=== PATIENT | female | born 1985 | race Caucasian/White ===

== ENCOUNTER 2016-06-19 08:44 | Inpatient (IN) | payer OTHER ==
--- NOTE | ~2016-06-19 | CO ---
Unit #: [id number] #: [id number] Patient: RAMSEY HOLGUIN [id number] [address] [address] [id number] I MR#: [id number] NAME: RAMSEY HOLGUIN ROOM: [facility] Age: 31 Sex: F Admission Date: 06/19/2016 : 1985 Attending Physician: Rodney Baltazar M.D. Primary Care Physician: No Primary Care Physician Requesting Physician: Dave Leonard M.D. CONSULTATION REPORT REASON FOR REFERRAL Left pneumothorax. HISTORY OF PRESENT ILLNESS Ms. Ramsey Holguin is a 31-year-old female with history of polysubstance abuse who presented to the emergency room with septic emboli with complaint of malaise, pain and fever and developed respiratory failure and was intubated on 06/24/16. Then, she developed a left pneumothorax this a.m. She had a #[address] Arturo Bonds. Followup chest x-ray shows tiny residual left apical pneumothorax. PAST MEDICAL HISTORY Polysubstance abuse with heroin, GERD, seizure disorder, anxiety disorder, asthma. PAST SURGICAL HISTORY Surgery for endometriosis, ovarian cyst, right hand surgery and oral surgery. MEDICATION ALLERGIES Keflex. MEDICATIONS 1. Methadone 30 mg daily. 2. Gabapentin 300 mg three times a day. 3. Linezolid 600 mg once every 12 hours. 4. Lorazepam 0.5 mg two tablets every eight hours. 5. Oxycodone 15 mg immediate release one every four hours p.r.n. REVIEW OF SYSTEMS Unable to obtain due to patient's intubation. PHYSICAL EXAMINATION GENERAL APPEARANCE: 31-year-old female, , sedated, orally intubated on ventilator. VITAL SIGNS: Temperature 99.7. Heart rate 94. Blood pressure 107/62. Respiratory rate 18 per ventilator. NEUROLOGIC: Unable to assess due to sedation. HEENT: Normocephalic. No facial asymmetry. Orally intubated. NECK: Supple. Trachea midline. No thyromegaly. No palpable cervical, supraclavicular or (1) lymphadenopathy. No subcu emphysema. LUNGS: Bilaterally but decreased in the bases with some rhonchi noted. CARDIOVASCULAR: S1, S2, without rub, without murmur. No S3 or S4. No peripheral edema. Unit #: [id number] #: [id number] Patient: RAMSEY HOLGUIN ABDOMEN: Large, round, soft. Bowel sounds positive, nontender. No pulsatile pulses or hepatosplenomegaly. EXTREMITIES: Warm and dry. No edema. No clubbing. No cyanosis but she does have some ecchymosis on the upper extremities. DIAGNOSTIC STUDIES IMAGING: Chest x-ray following chest tube placement shows small retained apical pneumothorax. IMPRESSION 1. Left pneumothorax status post chest tube placement. 2. Septic emboli. 3. Tricuspid endocarditis. 4. Seizure disorder. 5. Acute respiratory failure. PLAN We will continue the tube dissection and then re-evaluate in the a.m. with chest x-ray. Thank you very much for allowing us to participate in the care of the patient. If you have any questions, please do not hesitate to call. Dictated by... Isabella Cohn A.P.R.N. for Arturo Bonds M.D. JAYNE/dylan TD: 06/25/2016 12:45 JOB #: [id number] CONSULTATION REPORT Page 1 of 1 X Isabella Cohn APRN X CONSULTATION REPORT
--- NOTE | ~2016-06-19 | XA166 ---
[facility] A Service of [facility] & [facility] RADIOLOGY TEXT RESULTS PATIENT: SALOME ECHOLS LOCATION: [address] : [birth year] UNIT #: [id number] AGE: [address]: Jacob Geronimo MD SEX: F ORDER DR: [id number] [facility] [address] [place], [place] [address] [id number] I MR#: [id number] Acc #: [id number] NAME: SALOME ECHOLS : 1985 SEX: F STUDY DATE/TIME: 07/07/2016 13:41 [facility] STUDY DESCRIPTION: XA PICC Line Placement WO Port Attending Physician: Jacob Geronimo M.D. Ordering Physician: Jacob Geronimo M.D. Primary Care Physician: Ashley Primary Care Physician MEDICAL IMAGING REPORT This report is preliminary unless electronic signature is present EXAM PICC line placement under fluoroscopy HISTORY No IV access. PRE-PROCEDURE The procedure was explained to the patient and/or patient regional sales representative including risks, benefits, potential complications and potential for alternative forms of treatment. Informed consent was obtained, and prior to initiating the procedure a formal timeout procedure was performed. PROCEDURE Using full standard sterile barrier technique, including caps, gowns, gloves, masks, as well as sterile skin preparation and standard sterile draping, the right arm was prepped and draped in the usual fashion, and real-time sterile ultrasound guidance was used to localize a right arm basilic vein and to confirm vessel patency. A hard copy ultrasound image was recorded. After local anesthesia with 1% Xylocaine, the vein was punctured using real-time sterile ultrasound guidance, and an 0.018 guidewire was advanced into the superior vena cava, using fluoroscopic guidance. A 5 Stateless dual-lumen PICC was then measured and deployed with the tip positioned in the superior vena cava. The position of the line was documented with a radiographic image. The line was secured in place with an adhesive dressing and an antibiotic patch was applied. Total fluoro time was 0.1 minutes. Exposure 1 mGy trimmed length of 37 cm. Tip of the catheter is in the SVC. IMPRESSION Successful placement of a 5 Stateless dual lumen PowerPICC via the right arm under ultrasound and fluoroscopic guidance. The tip of the PICC is in STS. [facility] A Service of [facility] & [facility] RADIOLOGY TEXT RESULTS PATIENT: SALOME ECHOLS [facility] [birth year] UNIT #: [id number] AGE: [address]: Jacob Geronimo MD SEX: F ORDER DR: good position in the superior vena cava. Dictated by... Colton Salguero M.D. THIS IS AN ELECTRONICALLY VERIFIED REPORT Colton Salguero M.D. at 07/08/2016 9:31 AM JOVANNI/zana TD: 07/07/2016 19:56 JOB #: [id number] MEDICAL IMAGING REPORT Page 1 of 1 COPY
--- NOTE | ~2016-06-19 | TOC ---
Unit #: [id number] #: [id number] Patient: SALOME ECHOLS [id number] [facility] [address] [place], [place] [address] [id number] I MR#: [id number] NAME: SALOME ECHOLS RO[facility] Age: 31 Sex: F Admission Date: 06/19/2016 : 1985 Attending Physician: Rodney Baltazar M.D. Primary Care Physician: No Primary Care Physician TRANSFER OF CARE SUMMARY PRINCIPAL DIAGNOSES AT THE TIME OF DICTATION 1. Tricuspid valve endocarditis. 2. Acute hypoxic respiratory failure. 3. Methicillin-resistant Staphylococcus aureus sepsis. 4. Septic pulmonary emboli. 5. Methicillin-resistant Staphylococcus aureus pneumonia. 6. Pneumothorax. 7. Intravenous drug abuse. 8. Severe sepsis. 9. Back pain. 10. Thrombocytopenia. 11. Hypokalemia. 12. Severe protein calorie malnutrition. HOSPITAL COURSE Patient is a 31-year-old female who presented to [facility] emergency department secondary to body aches and coughing up blood. Apparently she has been feeling ill for about five days. Twenty-four hours prior to presentation she began to thrown up and noticed blood in her vomitus. Workup revealed sepsis, pneumonia and possible endocarditis. Ultimately blood cultures returned with growing MRSA. Two-D echo was performed and showed tricuspid valve vegetation. The patient was started on IV vancomycin and gentamicin and the gentamicin was stopped once the MRSA became evident. The patient began to complain of back pain on hospital day two. An MRI was ordered to rule out discitis. However, the patient was unable to tolerate the MRI secondary to pain. On 06/22 the patient's blood cultures that had previously appeared positive began to return growing MRSA. ID consult was obtained. The patient was changed to Zyvox. On 06/24 the patient's respiratory status worsened and she was transferred to the ICU and intubated. RNENY at that time revealed severe flail of the posterior leaflet of the tricuspid valve. Since that time the patient has remained intubated and antibiotics have continued. Most recent blood cultures are negative. Conversation has been had with CT surgery downtown regarding possible surgery. However, it is felt that the patient needs to be more hemodynamically stable prior to Unit #: [id number] #: [id number] Patient: SALOME ECHOLS transfer. Dictated by... Jaspal Navarro/saad TD: 06/28/2016 20:15 JOB #: [id number] TRANSFER OF CARE SUMMARY Page 1 of 1 X Rodney Baltazar MD X TRANSFER OF CARE SUMMARY
--- NOTE | ~2016-06-19 | FU ---
[facility] Nutrition Therapy DATE: 06/29/16 Patient: SALOME ECHOLS Physician: SESAR Address: [address] Room/Bed: [address], Zip: [place] [address] Admit Date: 06/19/16 Date of : [birth year] Height: 5 3 Weight: 160 73 NUTRITION MONITORING/FOLLOW-UP: Reason: PT SEEN FOR ENTERAL NUTRITION SUPPORT/ENTERAL NUTRITION SUPPORT DX: BODY ACHES, COUGHING UP BLOOD, PNA, ENDOCARDITIS Anthropometrics: 5'3", WT: 160# (73 KG), BMI: 28.3 -WEIGHTS HAVE RANGED 135-160# SINCE ADMIT. ADMIT WT: 135# (FLUID RETENTION) Labs: CREAT: 0.5, CA+:7.6, ALB: 1.6 Meds: KCL, D5%, FENTANYL, ZOFRAN, PROPOFOL (CURRENTLY OFF) I&O's: 2412/4110 Skin: BLE TRACE EDEMA; BUE/HANDS 1+ EDEMA Estimated Nutrition Needs: [id number] KCAL 74-92 G PRO Assessment: CHART REVIEWED AND EVENTS NOTED. PT SEEN FOR ENTERAL NUTRITION SUPPORT FOLLOW-UP. PT CONTINUES TO BE INTUBATED AND SEDATED RECEIVING ALTERNATIVE NUTRITION SUPPORT OF JEVITY 1.5 @ 50 ML/HR + SUGAR-FREE PROSTAT ONCE DAILY. PER RN AND CHART, PT TOLERATING ENTERAL NUTRITION, NO ISSUES NOTED. PER PUMP HISTORY, PT RECEIVING ~90% ESTIMATED NEEDS PAST 24 HOURS. NO FAMILY IN ROOM AT THIS TIME. RD TO CONTINUE TO FOLLOW. -PROVIDES 1900 KCAL, 92 G PRO, 912 ML FREE H20 Dx: INADEQUATE PROTEIN-ENERGY INTAKE R/T CURRENT CLINICAL CONDITION AEB NPO STATUS, PT INTUBATED AND SEDATED, CONSULT RE: EN. -ACTIVE, RESOLVED INADEQUATE PROTEIN-ENERGY INTAKE R/T CURRENT CLINICAL CONDITION AEB PT RECEIVING ALTERNATIVE NUTRITION SUPPORT, PT INTUBATED AND SEDATED. Intervention: 1. ENTERAL NUTRITION SUPPORT Monitoring, Evaluation and Goals: GOALS MET 1. ENTERAL NUTRITION; TOLERATE ~80-100% ESTIMATED NUTRIENT NEEDS 2. PO INTAKE; ADVANCE DIET TOLERATED W/NO C/O N/V/D (PO>50%) 3. LABS; WNL 4. GI; PROMOTE REGULAR GI FUNCTION MONITOR: -TF RATE/RESIDUALS [facility] Nutrition Therapy DATE: 06/29/16 Patient: SALOME ECHOLS Physician: SESAR Address: [address] [facility] Room/Bed: [address], Zip: [place] [address] Admit Date: 06/19/16 Date of : [birth year] Height: 5 3 Weight: 160 73 -WEIGHTS -EXTUBATION? Recommendations: 1. CONTINUE CURRENT ENTERAL NUTRITION SUPPORT OF JEVITY 1.5 @ 50 ML/HR + SUGAR-FREE PROSTAT ONCE DAILY -ADEQUATE FOR PT'S CURRENT ESTIMATED NEEDS CONTINUE FREE H20 FLUSHES PER MD 2. ONCE PT EXTUBATED, ADVANCE DIET PER E MERCHANT + REGULAR RD WILL F/U PER PROTOCOL PT IS MOD/SEVERELY COMPROMISED Respectfully, MIGNON SILVA MS, RD, LD [facility] Nutrition[facility] cc: client file
--- NOTE | ~2016-06-19 | CR72 ---
[facility] A Service of [facility] & [facility] RADIOLOGY TEXT RESULTS PATIENT: SALOME ECHOLS LOCATION: [address] : [birth year] UNIT #: [id number] AGE: [address]: DREA SHAIKH MD SEX: F ORDER DR: [id number] [facility] [address] [place], [place] [address] [id number] I MR#: [id number] Acc #: [id number] NAME: SALOME ECHOLS : 1985 SEX: F STUDY DATE/TIME: 07/04/2016 13:26 UNIT: [facility] ROOM: [facility] STUDY DESCRIPTION: CR Chest Single View Portable Attending Physician: Drea Shaikh M.D. Ordering Physician: Mj Cooper M.D. Primary Care Physician: Primary Care Physician No MEDICAL IMAGING REPORT This report is preliminary unless electronic signature is present EXAM Portable chest 07/04/2016 HISTORY Respiratory failure and shortness of air since 05/22/2016. COMPARISON Chest 07/04/2016. FINDINGS 2 frontal views of the chest demonstrate tubes and lines in stable position. No pneumothorax. No change in layering right pleural effusion and bilateral interstitial opacities. Heart size and mediastinum are stable. IMPRESSION 1. Tubes and lines are stable. No pneumothorax. 2. No change in layering right pleural effusion and bilateral interstitial opacities. Dictated by... Greyson Oconnell M.D. THIS IS AN ELECTRONICALLY VERIFIED REPORT Greyson Oconnell M.D. at 07/05/2016 10:55 AM WILBERT/jerilyn TD: 07/05/2016 09:09 JOB #: [id number] MEDICAL IMAGING REPORT Page 1 of 1 COPY
--- NOTE | ~2016-06-19 | CR72 ---
[facility] A Service of [facility] & [facility] RADIOLOGY TEXT RESULTS PATIENT: SALOME ECHOLS LOCATION: [address]12 : [birth year] UNIT #: [id number] AGE: [address]: Jacob Geronimo MD SEX: F ORDER DR: [id number] [facility] [address] [place], [place] [address] [id number] I MR#: [id number] Acc #: [id number] NAME: SALOME ECHOLS : 1985 SEX: F STUDY DATE/TIME: 07/05/2016 3:38 UNIT: [facility] ROOM: [facility] STUDY DESCRIPTION: CR Chest Single View Portable Attending Physician: Grazyna Shaikh M.D. Ordering Physician: Daev Leonard M.D. Primary Care Physician: No Primary Care Physician MEDICAL IMAGING REPORT This report is preliminary unless electronic signature is present EXAM Portable chest, 07/05/16 HISTORY Abdominal distension, respiratory failure, septic emboli, followup endotracheal tube, symptoms for 16 days FINDINGS This portable view of the chest shows an endotracheal tube and Dobbhoff tube and central venous catheter are in good position. There is increased density in the right hemithorax suggesting small moderate effusion. There has been no change from yesterday's study. Dictated by... Dayron Winters M.D. THIS IS AN ELECTRONICALLY VERIFIED REPORT Dayron Winters M.D. at 07/06/2016 1:25 PM KERRIE/dyan TD: 07/05/2016 19:13 JOB #: [id number] MEDICAL IMAGING REPORT Page 1 of 1 COPY
--- NOTE | ~2016-06-19 | CR7 ---
[facility] A Service of [facility] & [facility] RADIOLOGY TEXT RESULTS PATIENT: RAMSEY HOLGUIN LOCATION: [place] [address]-12 : 83 UNIT #: [id number] AGE: [address]: Rodney Baltazar MD SEX: F ORDER DR: [id number] [facility] [address] [place], [place] [address] [id number] I MR#: [id number] Acc #: [id number] NAME: RAMSEY HOLGUIN : 1985 SEX: F STUDY DATE/TIME: 06/24/2016 16:12 UNIT: [facility] ROOM: [facility] STUDY DESCRIPTION: CR Abdomen Single AP View Attending Physician: Rodney Baltazar M.D. Ordering Physician: Rodney Baltazar M.D. Primary Care Physician: No Primary Care Physician MEDICAL IMAGING REPORT This report is preliminary unless electronic signature is present EXAM AP abdomen. HISTORY Dobbhoff tube placement. COMPARISON No comparisons. FINDINGS Dobbhoff tube is projecting over the region of the stomach. The bowel gas pattern is nonobstructed. There are bilateral pulmonary infiltrates and a right pleural effusion. IMPRESSION Dobbhoff tube projecting over the region of the stomach. Dictated by... Tristin Sorenson M.D. THIS IS AN ELECTRONICALLY VERIFIED REPORT Tristin Sorenson M.D. at 06/25/2016 9:00 AM JORGE/juany TD: 06/24/2016 19:25 JOB #: [id number] MEDICAL IMAGING REPORT Page 1 of 1 COPY
--- NOTE | ~2016-06-19 | CT16 ---
[facility] A Service of [facility] RADIOLOGY TEXT RESULTS PATIENT: RAMSEY HOLGUIN LOCATION: [facility] [address]-12 : 83 UNIT #: [id number] AGE: [address]: Ilda Mariee MD SEX: F ORDER DR: [id number] [facility] [address] [place], [place] [address] [id number] I MR#: [id number] Acc #: [id number] NAME: RAMSEY HOLGUIN : 1985 SEX: F STUDY DATE/TIME: 06/19/2016 14:06 UNIT: [facility] ROOM: [facility] STUDY DESCRIPTION: CT Angio Chest for PE Attending Physician: Ilda Mariee M.D. Ordering Physician: Ilda Mariee M.D. Primary Care Physician: Primary Care Physician No MEDICAL IMAGING REPORT This report is preliminary unless electronic signature is present EXAM Chest CTA, 06/19 INDICATION Body aches with fever, cough and shortness of air for 5 days, worsening over that time. TECHNIQUE Axial images were obtained through the chest following IV contrast administration. 3-D reformats were obtained. This CT exam was performed with one or more of the following radiation dose reduction techniques: automatic exposure control, adjustment of mA and/or kV according to patient size, and iterative reconstruction. COMPARISON No comparison chest CT. FINDINGS The exam is degraded by excessive respiratory motion. No pulmonary embolism is seen, and there is no aortic dissection. There are trace pleural effusions. No pericardial fluid. There is no adenopathy. Multifocal areas of alveolar consolidation are seen throughout both lungs. At least 1 of these in the right upper lobe is partially cavitary. These are all probably the result of septic emboli in a patient with history of IV drug abuse. There is some septal thickening in the lungs suggesting a mild degree of edema as well. IMPRESSION 1. Motion degraded exam, but no pulmonary embolism or aortic dissection is seen. 2. Multifocal patchy alveolar infiltrates throughout the lungs are [facility] A Service of [facility] RADIOLOGY TEXT RESULTS PATIENT: RAMSEY HOLGUIN LOCATION: [facility] [address]78 : 83 UNIT #: [id number] AGE: [address]: Ilda Mariee MD SEX: F ORDER DR: present. At least 1 of these in the right upper lobe is partially cavitary. These are probably secondary to septic emboli. 3. Trace bilateral pleural effusions. Dictated by... Kenny Guevara Jr., M.D. THIS IS AN ELECTRONICALLY VERIFIED REPORT Kenny Guevara Jr., M.D. at 06/19/2016 3:50 PM JARROD/prem TD: 06/19/2016 15:40 JOB #: [id number] MEDICAL IMAGING REPORT Page 1 of 1 COPY
--- NOTE | ~2016-06-19 | CR72 ---
[facility] A Service of [facility] RADIOLOGY TEXT RESULTS PATIENT: RAMSEY HOLGUIN LOCATION: [facility] [address]-12 : 83 UNIT #: [id number] AGE: [address]: Ilda Mariee MD SEX: F ORDER DR: [id number] [facility] [address] [place], [place] [address] [id number] E MR#: [id number] Acc #: [id number] NAME: RAMSEY HOLGUIN : 1985 SEX: F STUDY DATE/TIME: 06/19/2016 8:38 UNIT: [facility] ROOM: STUDY DESCRIPTION: CR Chest Single View Portable Attending Physician: Tracy Mercado M.D. Ordering Physician: Tracy Mercado M.D. Primary Care Physician: Primary Care Physician No MEDICAL IMAGING REPORT This report is preliminary unless electronic signature is present EXAM Portable chest INDICATION 31-year-old female with fever, body aches and shortness of breath for 5 days. COMPARISON 05/06/2014. FINDINGS Bilateral interstitial and alveolar infiltrates greatest in the left base. Findings most suspicious for pneumonia. Heart size normal. IMPRESSION Bilateral interstitial and alveolar infiltrates most compatible with pneumonia. Findings are worse in the left lung base. Dictated by... Tristin Sorenson M.D. THIS IS AN ELECTRONICALLY VERIFIED REPORT Tristin Sorenson M.D. at 06/19/2016 5:03 PM JORGE/jerilyn TD: 06/19/2016 10:40 JOB #: [id number] MEDICAL IMAGING REPORT Page 1 of 1 COPY
--- NOTE | ~2016-06-19 | US139 ---
[facility] A Service of [facility] RADIOLOGY TEXT RESULTS PATIENT: SALOME ECHOLS [facility]ATION: [facility] [birth year] UNIT #: [id number] AGE: [address]: DREA RUBIO MD SEX: F ORDER DR: [id number] [facility] [address] [place], [place] [address] [id number] I MR#: [id number] Acc #: [id number] NAME: SALOME ECHOLS : 1985 SEX: F STUDY DATE/TIME: 06/30/2016 17:49 UNIT: [facility] ROOM: [facility] STUDY DESCRIPTION: US UE Veins Complete Alexis Stdy Attending Physician: Drea Rubio M.D. Ordering Physician: Ed Doctor [id number] [facility] Primary Care Physician: Primary Care Physician No MEDICAL IMAGING REPORT This report is preliminary unless electronic signature is present EXAM Bilateral upper extremity duplex Doppler venous ultrasound COMPARISON None INDICATIONS 31-year-old female with septic pulmonary emboli and dyspnea for 2 days. MRSA infection. FINDINGS Right internal jugular vein is not imaged. Right subclavian vein is fully compressible with normal internal color-flow waveform. Right axillary, cephalic and basilic veins as well as the right brachial veins are fully compressible with internal color flow. Left internal jugular and axillary veins are fully compressible with normal internal color-flow and waveform. Left subclavian vein is fully compressible with normal internal color-flow and waveform. The left cephalic, basilic and brachial veins are fully compressible with color flow noted in both brachial veins. IMPRESSION Please note that there are no images saved of the right internal jugular vein. Therefore this vessel cannot be evaluated for the presence of deep venous thrombosis. Clinical correlation recommended. Exam is otherwise negative for DVT or SVT in either upper extremity. Dictated by... Maico Higuera M.D. THIS IS AN ELECTRONICALLY VERIFIED REPORT [facility] A Service of [facility] RADIOLOGY TEXT RESULTS PATIENT: RED,SALOME LOCATION: [address]12 : [birth year] UNIT #: [id number] AGE: [address]: DREA RUBIO MD SEX: F ORDER DR: Maico Higuera M.D. at 07/01/2016 11:55 AM Channing TD: 07/01/2016 06:36 JOB #: [id number] MEDICAL IMAGING REPORT Page 1 of 1 COPY
--- NOTE | ~2016-06-19 | CR72 ---
[facility] A Service of [facility] & [facility] RADIOLOGY TEXT RESULTS PATIENT: SALOME ECHOLS LOCATION: [address] : [birth year] UNIT #: [id number] AGE: [address]: Jacob Geronimo MD SEX: F ORDER DR: [id number] [facility] [address] [place], [place] [address] [id number] I MR#: [id number] Acc #: [id number] NAME: SALOME ECHOLS : 1985 SEX: F STUDY DATE/TIME: 07/05/2016 17:25 UNIT: [facility] ROOM: [facility] STUDY DESCRIPTION: CR Chest Single View Portable Attending Physician: Grazyna Shaikh M.D. Ordering Physician: Dave Leonard M.D. Primary Care Physician: Primary Care Physician No MEDICAL IMAGING REPORT This report is preliminary unless electronic signature is present EXAM Single view of the chest, 07/05/2016 at 1725 hours. COMPARISON Single view chest dated 07/05/2016 at 0338 hours. HISTORY Right-sided chest tube placement now. FINDINGS Frontal view of the chest was obtained. Interval new placement of a right-sided chest tube with interval mild decrease in the right-sided pleural effusion. There is residual still some pleural effusion noted. New subcutaneous emphysema is noted in the right lateral chest wall, likely post procedural. Scattered alveolar And interstitial opacities are noted in the lungs bilaterally, worse on the right when compared to the left. Heart is of normal size. Tubes and lines are relatively stable. Tip of the endotracheal tube appears to be slightly more lower and it is about 1.7 cm from the [place]. It could also be related to neck position. IMPRESSION 1. Interval new right-sided chest tube. 2. Postprocedural subcutaneous emphysema and decrease in the right-sided pleural effusion is seen. 3. Cardiopulmonary status of the other tubes and lines are stable. Dictated by... Darcy Simon M.D. THIS IS AN ELECTRONICALLY VERIFIED REPORT Darcy Simon M.D. at 07/06/2016 1:49 PM [facility] A Service of [facility] & [facility] RADIOLOGY TEXT RESULTS PATIENT: SALOME ECHOLS LOCATION: [facility] CICCU2-12 : [birth year] UNIT #: [id number] AGE: [address]: Jacob Geronimo MD SEX: F ORDER DR: CINDA/kavin TD: 07/06/2016 05:53 JOB #: [id number] MEDICAL IMAGING REPORT Page 1 of 1 COPY
--- NOTE | ~2016-06-19 | EKG ---
PATIENT: RAMSEY HOLGUIN UNIT #: [id number] Ventricular Rate: 107 BPM Atrial Rate: 107 BPM P-R Interval: 158 ms QRS Duration: 84 ms Q-T Interval: 336 ms QTC Calculation(Bezet): 448 ms P [place]: 56 degrees Calculated R [place]: 78 degrees Calculated T [place]: 64 degrees Diagnosis Line: Sinus tachycardia Diagnosis Line: ST and T wave abnormality, consider anterior Diagnosis Line: ischemia Diagnosis Line: Abnormal ECG Diagnosis Line: When compared with ECG of 21-JUN-2016 20:21, Diagnosis Line: (unconfirmed) Diagnosis Line: No significant change was found Diagnosis Line: Confirmed by ANGELLA NOVAK MD ([id number]) on 06/23/2016 Diagnosis Line: 11:13:54 PM INTERPRETING MD: SCARLET TAMAYO
--- NOTE | ~2016-06-19 | CR72 ---
[facility] A Service of [facility] & [facility] RADIOLOGY TEXT RESULTS PATIENT: SALOME ECHOLS LOCATION: [place] [address]-12 : 83 UNIT #: [id number] AGE: [address]: Rodney Baltazar MD SEX: F ORDER DR: [id number] [facility] [address] [place], [place] [address] [id number] I MR#: [id number] Acc #: [id number] NAME: SALOME ECHOLS : 1985 SEX: F STUDY DATE/TIME: 06/26/2016 4:48 UNIT: [facility] ROOM: [facility] STUDY DESCRIPTION: CR Chest Single View Portable Attending Physician: Rodney Baltazar M.D. Ordering Physician: Rodney Baltazar M.D. Primary Care Physician: Primary Care Physician No MEDICAL IMAGING REPORT This report is preliminary unless electronic signature is present EXAM portable chest INDICATIONS Shortness of air and cough. PROCEDURE Frontal view chest. COMPARISON 06/25/2016 FINDINGS Heart size stable. Stable bilateral opacities. Small apical left pneumothorax is stable and left-sided chest tube is stable. IMPRESSION Stable chest Dictated by... Poli Coronado M.D. THIS IS AN ELECTRONICALLY VERIFIED REPORT Poli Coronado M.D. at 06/29/2016 7:30 AM Aditya TD: 06/26/2016 08:04 JOB #: [id number] MEDICAL IMAGING REPORT Page 1 of 1 COPY
--- NOTE | ~2016-06-19 | OR ---
Unit #: [id number] #: [id number] Patient: RAMSEY HOLGUIN [id number] [address] [address] [id number] I MR#: [id number] NAME: RAMSEY HOLGUIN ROOM: [facility] Date of Procedure: 06/24/2016 Admission Date: 06/19/2016 Surgeon: Dave Leonard M.D. : 1985 Attending Physician: Rodney Baltazar M.D. Primary Care Physician: No Primary Care Physician PROCEDURE OPERATIVE NOTE PREOPERATIVE DIAGNOSIS Respiratory failure. POSTOPERATIVE DIAGNOSIS Diagnosed with respiratory failure. PROCEDURES PERFORMED 1. Endotracheal intubation. 2. Central venous catheter placement. INDICATION FOR PROCEDURE Respiratory failure. ANESTHESIA 20 mg of etomidate and 4 mg of Versed. PROCEDURE After placing the patient in the proper position, using 20 mg of etomidate and 4 mg of Versed, we intubated her under direct visualization over the vocal cords with a size 8 endotracheal tube. No complications happened. The patient tolerated the procedure very well. Post procedure chest x-ray was ordered. Indication for central venous catheter placement is vascular access. After placing the patient in the appropriate position and prepping the right side of the neck with ChloraPrep and using aseptic measures, a triple lumen central venous catheter was inserted under ultrasound guidance in the right internal jugular vein. All three ports were in and the guidewire was removed in total. All three ports were flushed and were secured with a suture in place. The patient tolerated the procedure very well with no complications. Dictated by... Jaspal Monzon TD: 06/25/2016 11:51 JOB #: [id number] Unit #: [id number] #: [id number] Patient: RAMSEY HOLGUIN PROCEDURE OPERATIVE NOTE Page 1 of 1 X Dave Leonard MD PROCEDURE OPERATIVE NOTE
--- NOTE | ~2016-06-19 | CR72 ---
[facility] A Service of [facility] RADIOLOGY TEXT RESULTS PATIENT: RAMSEY HOLGUIN LOCATION: [address] : [birth year] UNIT #: [id number] AGE: [address]: Rodney Baltazar MD SEX: F ORDER DR: [id number] [place] [id number] [facility]. [place], [place] [address] [id number] I MR#: [id number] Acc #: [id number] NAME: RAMSEY HOLGUIN : 1985 SEX: F STUDY DATE/TIME: 06/23/2016 16:00 UNIT: C5B ROOM: [facility] STUDY DESCRIPTION: CR Chest Single View Portable Attending Physician: Rodney Baltazar M.D. Ordering Physician: Dave Leonard M.D. Primary Care Physician: No Primary Care Physician MEDICAL IMAGING REPORT This report is preliminary unless electronic signature is present EXAM Portable chest x-ray. DATE OF EXAM 06/23/2016 HISTORY Short of air. Weak. Body aches, 9 days. REPORT AP radiograph of the chest is presented. COMPARISON Comparison to chest radiograph and CT 06/19/2016. FINDINGS There is a marked worsening in appearance of the lungs. Lung volumes are moderate. Extensive airspace disease bilaterally has significantly increased compared to the prior examination. I believe that all lobes of both lungs are involved. Some of the airspace disease has a nodular configuration as seen on prior CT examination and a few of the areas of somewhat nodular airspace disease in the left mid and lower lung zones, there is questionable central air density raising the possibility of slight cavitation. This could simply be a reflection of air bronchograms. The appearance suggests multifocal bilateral severe pneumonia overall, worse on the right than the left. As suggested on prior CT examination, the nodular configuration of the airspace disease, its multifocality, and possible cavitary nature could be a reflection of septic emboli. A typical community acquired pneumonia could be considered. In the appropriate clinical setting, fungal pneumonia could be considered. There is a new moderate to large right pleural effusion. No left pleural effusion. No pneumothorax. [facility] A Service of [facility] & [facility] RADIOLOGY TEXT RESULTS PATIENT: RAMSEY HOLGUIN LOCATION: [address] : [birth year] UNIT #: [id number] AGE: [address]: Rodney Baltazar MD SEX: F ORDER DR: Mild cardiac enlargement. No acute-appearing bony abnormality. Dictated by... Colton Wells M.D. THIS IS AN ELECTRONICALLY VERIFIED REPORT Colton Wells M.D. at 06/24/2016 6:36 PM Abiodun TD: 06/23/2016 21:48 JOB #: [id number] MEDICAL IMAGING REPORT Page 1 of 1 COPY
--- NOTE | ~2016-06-19 | CR72 ---
[facility] A Service of [facility] RADIOLOGY TEXT RESULTS PATIENT: RAMSEY HOLGUIN LOCATION: [place] [address]-12 : 83 UNIT #: [id number] AGE: [address]: Rodney Baltazar MD SEX: F ORDER DR: [id number] [facility] [address] [place], [place] [address] [id number] I MR#: [id number] Acc #: [id number] NAME: RAMSEY HOLGUIN : 1985 SEX: F STUDY DATE/TIME: 06/25/2016 5:37 UNIT: [facility] ROOM: [facility] STUDY DESCRIPTION: CR Chest Single View Portable Attending Physician: Rodney Baltazar M.D. Ordering Physician: Dave Leonard M.D. Primary Care Physician: Primary Care Physician No MEDICAL IMAGING REPORT This report is preliminary unless electronic signature is present EXAM Portable chest 06/25/2016 HISTORY Shortness of air, body aches, septic pulmonary emboli. History of endocarditis and IV drug abuse. FINDINGS AP portable chest is compared with 06/24/2016. There is a new small left pneumothorax probably less than 20%. No midline shift. Endotracheal tube and right IJ line are unchanged in position. Bilateral infiltrate are not changed. A right pleural effusion is also essentially stable. There is no right side pneumothorax. IMPRESSION New left small pneumothorax probably measuring less than 20%. No midline shift. The remainder of the exam is stable. ADDENDUM Findings have been discussed directly with the patient's nurse Kenny in the ICU at the time of this dictation. He reports he will notify the patient's physicians immediately. Dictated by... Kenny Guevara Jr., M.D. THIS IS AN ELECTRONICALLY VERIFIED REPORT Kenny Guevara Jr., M.D. at 06/25/2016 10:01 AM JARROD/taryn [facility] A Service of [facility] RADIOLOGY TEXT RESULTS PATIENT: RAMSEY HOLGUIN LOCATION: [address] : 83 UNIT #: [id number] AGE: [address]: Rodney Baltazar MD SEX: F ORDER DR: TD: 06/25/2016 06:15 JOB #: [id number] MEDICAL IMAGING REPORT Page 1 of 1 COPY
--- NOTE | ~2016-06-19 | EKG ---
PATIENT: SALOME ECHOLS UNIT #: [id number] Ventricular Rate: 85 BPM Atrial Rate: 85 BPM P-R Interval: 122 ms QRS Duration: 84 ms Q-T Interval: 464 ms QTC Calculation(Bezet): 552 ms P [place]: 41 degrees Calculated R [place]: 68 degrees Calculated T [place]: 123 degrees Diagnosis Line: Normal sinus rhythm Diagnosis Line: T wave abnormality, consider anterior ischemia Diagnosis Line: Prolonged QT Diagnosis Line: Abnormal ECG Diagnosis Line: Diagnosis Line: Confirmed by ANGELLA NOVAK MD ([id number]) on 06/28/2016 Diagnosis Line: 4:32:02 PM INTERPRETING MD: SCARLET TAMAYO
--- NOTE | ~2016-06-19 | HP ---
Unit #: [id number] #: [id number] Patient: RAMSEY HOLGUIN [id number] [address] [address] [id number] I MR#: [id number] NAME: RAMSEY HOLGUIN. ROOM: 97268 Age: 31 Sex: F Admission Date: 06/19/2016 : 1985 Attending Physician: Ilda Mariee M.D. Primary Care Physician: No Primary Care Physician HISTORY AND PHYSICAL CHIEF COMPLAINT Body aches, coughing up blood, short of air. HISTORY OF PRESENT ILLNESS The patient is a 31-year-old female with a past medical history of polysubstance abuse, seizures, anxiety, asthma and gastroesophageal reflux disease. She presented to the emergency department for evaluation of the above. The patient states that she has not been feeling well for the past five days. She has had body aches, cough and fever. She states that she has had hemoptysis. She also reports nausea and vomiting as well as decreased appetite. She reports 5 bouts of emesis within the past 24 hours. She denies any diarrhea. No urinary symptoms. Upon arrival in the emergency department the patient's temperature was 98.1, pulse 140, oxygen saturation 94% on room air. Chest x-ray shows bilateral interstitial infiltrates. Lactic acid is 2. Platelets are 24. White blood cell count is 15.2. Tox screen is positive for opiates. Urinalysis shows findings concerning for urinary tract infection. She was given vancomycin and Zosyn in the emergency department as well as a 2 liter bolus of normal saline. She is being admitted to [facility] for evaluation and further treatment. PAST MEDICAL HISTORY 1. Admission to [facility] 05/07/2014 through 05/08/2014 for multiple seizures. She was seen in consultation by neurology. She had an MRI that did not show any findings that would cause seizures. She was discharged home on Keppra 500 mg b.i.d., which she has not been taking. She denies any additional seizures. 2. Anxiety. 3. Asthma. 4. Mood disorder n.o.s. 5. Gastroesophageal reflux disease. 6. Hepatitis C. PAST SURGICAL HISTORY 1. Ovarian cyst. 2. Endometriosis surgery. 3. Right hand surgery. 4. Oral surgery. SOCIAL HISTORY The patient lives with her boyfriend. She has a history of IV drug use, Unit #: [id number] #: [id number] Patient: RAMSEY HOLGUIN including heroin, with the last use being yesterday. She denies other illicit drug use. There is no alcohol. She smokes a pack of cigarettes daily. Tox screens have been positive for methadone and tricyclics in the past. FAMILY HISTORY Notable for her dad having heart problems. ALLERGIES Keflex causes a rash. HOME MEDICATIONS None. REVIEW OF SYSTEMS A complete review of systems is negative except as indicated in the history of present illness. PHYSICAL EXAMINATION GENERAL: The patient is a female who is moderately ill appearing. VITALS: Temperature 98.1, pulse 140, respiratory rate 16, blood pressure 118/64, oxygen saturation 94% on room air. HEENT: The head is atraumatic. Mucous membranes are dry. NECK: Supple. Trachea midline. LUNGS: Clear to auscultation bilaterally. Breathing is mildly labored. HEART: Tachycardic in the 110s. ABDOMEN: Soft and nontender with bowel sounds present in all four quadrants. EXTREMITIES: There are scattered track villa of the upper extremities and dorsal aspect of the hands. NEUROLOGIC: The patient is lethargic, but answers questions. She is oriented to the year. She follows commands. PSYCHIATRIC: The patient is somewhat anxious. She demonstrates poor insight and judgment. DIAGNOSTIC STUDIES IMAGING: Chest x-ray shows bilateral interstitial infiltrates. LABORATORY: Rapid flu screen is negative. INR is 1.2. Troponin less than 0.05. Lactic acid is 2. CMP is notable for sodium 130, potassium 3.4, chloride 96, glucose 128, calcium 7.7 but corrects to 9.1 when albumin of 2.2 is accounted for, AST 43, alkaline phosphatase 239, total bilirubin 2.9. CPK 17, alcohol level less than 5. CBC notable for white blood cell count 15.2, platelets 24. Urine tox screen positive for opiates. Urinalysis notable for trace leukocyte esterase, 5-10 red blood cells, 5-10 white blood cells, 1+ bacteria and a few squamous cells. CARDIOVASCULAR: EKG shows sinus tachycardia with a rate of 126 beats per minute. ASSESSMENT The patient is a 31-year-old female with 1. Sepsis with lactic acid of 2 and platelets of 24 that were previously normal. Concerning for severe sepsis. 2. Pneumonia versus possible septic emboli. 3. Possible endocarditis. 4. IV drug use with last use yesterday. Unit #: [id number] #: [id number] Patient: RAMSEY HOLGUIN 5. Thrombocytopenia. The patient's platelet count was previously normal and is 24 today. 6. Urinary tract infection. Prior urine cultures have shown no growth and/or normal urogenital alesia. 7. Hypokalemia with a potassium of 3.4. 8. History of seizures. Discharged home on Keppra, but the patient has been noncompliant. She denies any additional seizures. 9. Anxiety. 10. Asthma with continued tobacco abuse. 11. Gastroesophageal reflux disease. 12. Hepatitis C. PLAN 1. Admit to intermediate level. 2. Advance diet to clear liquids as tolerated. 3. Normal saline at 150 mL an hour. 4. Blood cultures times two. 5. Sputum culture and sensitivity. 6. Supplemental oxygen. 7. Vancomycin IV and gentamicin IV with pharmacy to dose. 8. Consult Dr. Leonard regarding hemoptysis. 9. Two-dimensional echo for further evaluation of possible endocarditis. 10. Sepsis protocol with repeat lactic aid. 11. Neuro checks. 12. Hepatitis panel and HIV. 13. safety and skill based pay manager/social work consult regarding IV drug use. 14. Serial cardiac enzymes with urine culture and sensitivity on urine in the lab. 15. Check magnesium level. 16. Potassium/magnesium protocol. 17. CT of the chest PE protocol for further evaluation of hemoptysis. 18. SCDs for DVT prophylaxis. 19. P.r.n. Tylenol. 20. P.r.n. Zofran. 21. Repeat labs in the morning including magnesium and INR. 22. Additional workup and consultants based on the above. Dictated by Jaspal Brown TD: 06/19/2016 12:24 JOB #: [id number] Unit #: [id number] #: [id number] Patient: RAMSEY HOLGUIN HISTORY AND PHYSICAL Page 1 of 1 X Ilda Mariee MD X HISTORY AND PHYSICAL
--- NOTE | ~2016-06-19 | DS ---
Unit #: [id number] #: [id number] Patient: SALOME ECHOLS [id number] [facility] [address] [place], [place] [address] [id number] I MR#: [id number] NAME: SALOME ECHOLS ROOM: [facility]IC[facility] Age: 31 Sex: F Admission Date: 06/19/2016 : 1985 Discharge Date: Attending Physician: Jacob Geronimo M.D. Primary Care Physician: No Primary Care Physician DISCHARGE SUMMARY ADDENDUM Kindly note there are two discharge summaries dictated by my colleagues earlier, Dr. Baltazar on the and Dr. Grazyna Shaikh a couple of days ago. This is an addendum to the discharge summary. The patient is a 31-year-old lady with IV drug use, history of hepatitis C, now with sepsis secondary to MRSA bacteremia endocarditis, Enterobacter pneumonia, MRSA pneumonia, still spiking fevers. She has a chest tube on the right side in place. For further workup infectious disease is recommending probably she needs to see a cardiothoracic surgeon for evaluation of valve replacement surgery. She is still spiking fevers and for further workup she will be transferred to [facility]. We are also trying to get a CT of the chest to evaluate for any loculations. For obtaining gadolinium scan gadolinium was injected today. If she is here today we will try to get the gadolinium scan today. If she gets transferred we will try to get it done at [facility]. She is also supposed to get a transesophageal echocardiogram. Kindly note her discharge is pending secondary to availability of bed to [facility]. At this point I spoke with the patient and her mother and both of them are agreeable for transfer. PHYSICAL EXAMINATION VITALS: On 07/07/2016 her physical examination shows temperature 101.2, pulse rate 84, respiratory rate 28, blood pressure 106/74. GENERAL: The patient has been alert and oriented time three. HEENT: Normocephalic, atraumatic. CHEST: Bilateral equal air entry. Bilateral rhonchi. Right-sided chest tube. HEART: S1 and S2. Regular rate and rhythm. Murmur present. ABDOMEN: Soft and nontender. EXTREMITIES: No edema. Normal pulses. DISCHARGE MEDICATIONS 1. Combivent 3 ml mini-neb q.4 h. p.r.n. shortness of breath. 2. Tylenol 650 mg p.r.n. 3. Lovenox 40 mg subcutaneous daily. 4. Neurontin 300 mg t.i.d. 5. Zofran 4 mg IV q.6 h. p.r.n. nausea and vomiting. 6. Robitussin 5 ml q.6 h. p.r.n. cough. 7. Ativan 1 mg q.8 h. p.r.n. 8. Bisacodyl 10 mg p.r.n. constipation. 9. Senokot 10 ml b.i.d. Unit #: [id number] #: [id number] Patient: SALOME ECHOLS 10. Bumex 2 mg IV daily. 11. Midodrine 10 mg t.i.d. 12. Pepcid 20 mg b.i.d. 13. Etodolac 30 mg IV q.6 h. p.r.n. pain. 14. Methadone 30 mg p.o. daily. 15. Oxycodone 15 mg p.o. q.6 h. p.r.n. pain. 16. Potassium replacement protocol. 17. Magnesium replacement protocol. 18. Daptomycin 450 mg IV daily. 19. Linezolid 600 mg IV q.12 h. 20. Zosyn 3.375 mg IV q.8 h. 21. Dexmedetomidine 400 mcg in sodium chloride 4 ml per hour. Kindly note she will be transferred once a bed is available to the HIPS team at [facility]. Dictated by... Jaspal Yao TD: 07/07/2016 12:08 JOB #: [id number] DISCHARGE SUMMARY Page 1 of 1 X X DISCHARGE SUMMARY
--- NOTE | ~2016-06-19 | CT57 ---
[facility] A Service of [facility] RADIOLOGY TEXT RESULTS PATIENT: SALOME ECHOLS LOCATION: [address] : [birth year] UNIT #: [id number] AGE: [address]: Jacob Geronimo MD SEX: F ORDER DR: [id number] [facility] [address] [place], [place] [address] [id number] I MR#: [id number] Acc #: [id number] NAME: SALOME ECHOLS : 1985 SEX: F STUDY DATE/TIME: 07/07/2016 14:20 UNIT: [facility] ROOM: [facility] STUDY DESCRIPTION: CT Chest Wo Cont Attending Physician: Jacob Geronimo M.D. Ordering Physician: Jacob Geronimo M.D. Primary Care Physician: No Primary Care Physician MEDICAL IMAGING REPORT This report is preliminary unless electronic signature is present EXAM CT chest without contrast DATE 07/07/2016 HISTORY 31-year-old female complains of body aches and fever for 2 weeks. Hepatitis C. COMPARISON CT chest 07/05/2016. TECHNIQUE This CT exam was performed with one or more of the following radiation dose reduction techniques: automatic control, adjustment of mA and/or kV according to patient size, and iterative reconstruction. FINDINGS Multiple cavitary type nodules are seen within both lungs, and multiple non cavitary nodules are also identified. These appear largely unchanged compared to the prior exam. There is a moderate sized right basilar pleural effusion, and a new right chest tube has been placed since 07/05/2016. The right pleural effusion appears slightly smaller, now measuring nearly 6.3 cm in depth compared to 7.2 cm previously. There is persistent dense bilateral lower lobe consolidative type change. Stable mild cardiac enlargement. Right IJ central line extends to the cavoatrial junction. Trace left pleural effusion is stable. Included portions of the upper abdominal organs appear grossly unremarkable. No acute osseous abnormalities are identified. IMPRESSION 1. Moderate sized right pleural effusion appears slightly diminished [facility] A Service of [facility] RADIOLOGY TEXT RESULTS PATIENT: SALOME ECHOLS LOCATION: [facility] CICCU2-12 : [birth year] UNIT #: [id number] AGE: [address]: Jacob Geronimo MD SEX: F ORDER DR: status post chest tube placement, compared to 06/25/2016. The chest tube appears appropriately positioned within this fluid collection. 2. Persistent dense bilateral lower lobe consolidations. 3. Multifocal cavitary noncavitary pulmonary nodules within both lungs, very similar in appearance to 2 days prior. Findings are thought most likely to represent changes of septic pulmonary emboli. 4. Stable small left pleural effusion. Dictated by... Marcela Ruelas M.D. THIS IS AN ELECTRONICALLY VERIFIED REPORT Marcela Ruelas M.D. at 07/08/2016 8:34 AM QUIN/zana TD: 07/07/2016 19:08 JOB #: [id number] MEDICAL IMAGING REPORT Page 1 of 1 COPY
--- NOTE | ~2016-06-19 | A ---
[facility] Nutrition Therapy DATE: 06/24/16 Patient: RAMSEY HOLGUIN Physician: SESAR Address: [address] [facility] Room/Bed: [address], Zip: [place] [address] Admit Date: 06/19/16 Date of : [birth year] Height: 5 3 Weight: 149 67.9 NUTRITIONAL ASSESSMENT: REASON: CONSULT RE: ENTERAL NUTRITION SUPPORT PT IS 31 Y.O. FEMALE ADMITTED FOR BODY ACHES, COUGHING UP BLOOD, PNA, ENDOCARDITIS PMH: IV DRUG USE, POLYSUBSTANCE ABUSE, SEIZURES, ASTHMA, GERD, HEPATITIS C Anthropometrics: 5'3", WT: 135# (PER FAMILY) (61 KG), BMI: 23.9 Labs: CREAT: 0.5, CA+:7.5, ALB: 1.8, AST: 49 Meds: VERSED, PROPOFOL, NACL, ZOFRAN, KCL I/O & Bowel function: 5380/5650 Skin Integrity: NO KNOWN SKIN ISSUES EDEMA: BLE TRACE EDEMA Estimated Nutrition Needs: 7824-8427 KCAL (25-30 KCAL/KG BW) 74-92 G PRO (1.2-1.5 G PRO/KG BW) FLUIDS CONSISTENT W/KCAL NEEDS OR MANAGE PER MD Assessment: CHART REVIEWED AND EVENTS NOTED. PT SEEN FOR ENTERAL NUTRITION SUPPORT CONSULT. PT TRANSFERRED TO ICU FROM /C THIS AM 4/5 2' DX ABOVE. PT CURRENTLY INTUBATED AND SEDATED W/PROPOFOL (RATE OF 20.7 ML/HR PROVIDING ~546 KCAL FROM LIPIDS). FAMILY IN ROOM REPORT PT TO HAVE DECREASED PO INTAKE AND APPETITE PAST SEVERAL DAYS PRIOR TO ADMIT D/T N/V/ABD PAIN. PER RN AND CHART, PLANS IN PLACE FOR DHT PLACEMENT AND NEED FOR ENTERAL NUTRITION SUPPORT PER RD RECOMMENDATIONS. FAMILY REPORTED NO DIET QUESTIONS. RD TO FOLLOW. SEE RECOMMENDATIONS BELOW. Dx: INADEQUATE PROTEIN-ENERGY INTAKE R/T CURRENT CLINICAL CONDITION, DX AEB PT INTUBATED AND SEDATED, NPO STATUS, RD CONSULT RE: EN. Intervention: 1. NPO 2. RD CONSULT Monitoring, Evaluation and Goals: 1. ENTERAL NUTRITION; PROVIDE ~80-100% ESTIMATED NEEDS 2. PO INTAKE; CONSUME >50% OF MEALS W/NO C/O N/V/D 3. LABS; WNL 4. GI; PROMOTE REGULAR GI FUNCTION [facility] Nutrition Therapy DATE: 06/24/16 Patient: RAMSEY HOLGUIN Physician: SESAR Address: [address] [place] [address] Room/Bed: [address], Zip: [place] [address] Admit Date: 06/19/16 Date of : [birth year] Height: 5 3 Weight: 149 67.9 MONITOR: -WEIGHTS -TF INITIATION/RATE/RESIDUALS -LABS -SEDATION RATE -EXTUBATION? Recommendations: 1. ONCE MEDICALLY FEASIBLE, BEGIN ALTERNATIVE NUTRITION SUPPORT OF JEVITY 1.5 @ 20 ML/HR, ADVANCE 10 ML q 6 HOURS TO GOAL RATE OF 35 ML/HR + SUGAR-FREE PROSTAT BID + SEDATION -TOTAL PROVIDES 2006 KCAL, 84 G PRO, 638 ML FREE H20 2. ONCE PROPOFOL D/C'D, BEGIN ALTERNATIVE NUTRITION SUPPORT OF JEVITY 1.5 @ 20 ML/HR, ADVANCE 10 ML q 6 HOURS TO GOAL RATE OF 50 ML/HR + SUGAR-FREE PROSTAT ONCE DAILY -PROVIDES 1900 KCAL, 92 G PRO, 912 ML FREE H20 ADD FREE H20 FLUSHES PER MD 3. ONCE PT EXTUBATED, ADVANCE DIET PER PRINCIPAL SOFTWARE ENGINEER + REGULAR DIET RD WILL F/U PER PROTOCOL PT IS SEVERELY COMPROMISED Respectfully, MIGNON SILVA MS, RD, LD [facility] cc: client file
--- NOTE | ~2016-06-19 | CT96 ---
[facility] A Service of [facility] & [facility] RADIOLOGY TEXT RESULTS PATIENT: SALOME ECHOLS LOCATION: [address] : [birth year] UNIT #: [id number] AGE: [address]: DREA SHAIKH MD SEX: F ORDER DR: [id number] [facility] [address] [place], [place] [address] [id number] I MR#: [id number] Acc #: [id number] NAME: SALOME ECHOLS : 1985 SEX: F STUDY DATE/TIME: 07/03/2016 4:51 UNIT: [facility] ROOM: [facility] STUDY DESCRIPTION: CT Lumbar Spine W Cont Attending Physician: Drea Shaikh M.D. Ordering Physician: Ric Mcdonald M.D. Primary Care Physician: Primary Care Physician No MEDICAL IMAGING REPORT This report is preliminary unless electronic signature is present EXAM CT lumbar spine with contrast. INDICATIONS Hepatitis C, anxiety, depression, asthma, illegal drug use with sepsis and positive blood cultures. Parasternal infection, body aches, coughing up blood, short of air for five days, fever. This CT exam was performed with one or more of the following radiation dose reduction techniques: automatic exposure control, adjustment of mA and/or kV according to patient size, and iterative reconstruction. COMMENT CT lumbar spine performed in the axial plane during intravenous administration of 100 mL of Isovue-370. This was followed by sagittal and coronal reconstructed images. Sagittal alignment is normal. Intervertebral disc heights are well maintained. There is no evidence for endplate destruction or osseous destruction. The facet joints are unremarkable. There is no CT evidence for diskitis, osteomyelitis or septic facet arthritis. There is no bony canal stenosis. No evidence for a psoas abscess. No gross evidence for epidural abscess but please be aware that a CT scan is relatively insensitive for this diagnosis when compared to MRI and if the patient is a candidate for an MRI this would be recommended. No obvious disc extrusion appreciated. There is probably some lower lumbar foraminal narrowing, but the soft tissues would be better assessed with an MRI. There is some apparent beam-hardening artifact. I suspect the patient has been scanned with her arms at her side. IMPRESSION 1. There is no CT evidence for osteomyelitis, diskitis or septic lumbar facet joint infection. 2. No evidence for psoas abscess. [facility] A Service of [facility] & [facility] RADIOLOGY TEXT RESULTS PATIENT: SALOME ECHOLS LOCATION: [address] : [birth year] UNIT #: [id number] AGE: [address]: DREA SHAIKH MD SEX: F ORDER DR: 3. There is no gross evidence for lumbar canal compromise or epidural abscess but a CT scan is relatively insensitive for these diagnoses when compared to an MRI and if the patient is candidate for MRI of the lumbar spine this would be suggested if concern for the possibility of epidural abscess persists. Dictated by... Doris Carlos M.D. THIS IS AN ELECTRONICALLY VERIFIED REPORT Doris Carlos M.D. at 07/03/2016 1:22 PM Camilo TD: 07/03/2016 08:06 JOB #: [id number] MEDICAL IMAGING REPORT Page 1 of 1 COPY
--- NOTE | ~2016-06-19 | CR72 ---
[facility] A Service of [facility] & [facility] RADIOLOGY TEXT RESULTS PATIENT: SALOME ECHOLS LOCATION: [address] : 83 UNIT #: [id number] AGE: [address]: Rodney Baltazar MD SEX: F ORDER DR: [id number] [facility] [address] [place], [place] [address] [id number] I MR#: [id number] Acc #: [id number] NAME: SALOME ECHOLS : 1985 SEX: F STUDY DATE/TIME: 06/28/2016 0407 UNIT: [facility] ROOM: [facility] STUDY DESCRIPTION: CR Chest Single View Portable Attending Physician: Rodney Baltazar M.D. Ordering Physician: Arturo Bonds M.D. Primary Care Physician: No Primary Care Physician MEDICAL IMAGING REPORT This report is preliminary unless electronic signature is present EXAM Portable chest, 06/28 at 0407. INDICATION Respiratory failure. Chest tube. FINDINGS AP portable chest compared with 06/27/2016. Tubes and lines are unchanged. Heart size stable. Bilateral pleural effusions are unchanged. Infiltrates in the dtp-py-btbdy lungs also are grossly stable. There is a minuscule left apical pneumothorax. Left chest tube in place. Dictated by... Kenny Guevara Jr., M.D. THIS IS AN ELECTRONICALLY VERIFIED REPORT Kenny Guevara Jr., M.D. at 06/28/2016 11:58 PM JARROD/dex TD: 06/28/2016 08:07 JOB #: [id number] MEDICAL IMAGING REPORT Page 1 of 1 COPY
--- NOTE | ~2016-06-19 | CR72 ---
[facility] A Service of [facility] RADIOLOGY TEXT RESULTS PATIENT: SALOME ECHOLS [facility] [birth year] UNIT #: [id number] AGE: [address]: DREA SHAIKH MD SEX: F ORDER DR: [id number] [facility] [address] [place], [place] [address] [id number] I MR#: [id number] Acc #: [id number] NAME: SALOME CEHOLS : 1985 SEX: F STUDY DATE/TIME: 07/04/2016 5:16 UNIT: [facility] ROOM: [facility] STUDY DESCRIPTION: CR Chest Single View Portable Attending Physician: Drea Shaikh M.D. Ordering Physician: Sandra Oliva M.D. Primary Care Physician: No Primary Care Physician MEDICAL IMAGING REPORT This report is preliminary unless electronic signature is present EXAM Portable chest 07/04/2016 HISTORY Respiratory failure and shortness of air for 15 days. COMPARISON STUDIES Comparison chest 07/03/2016. FINDINGS Frontal chest demonstrates tubes and lines in stable position. No pneumothorax. Suspected layering right pleural effusion. No interval improvement in diffuse interstitial and alveolar opacities bilaterally, right greater than left. Heart size and mediastinum are stable. IMPRESSION 1. Tubes and lines stable. No pneumothorax. 2. Suspected layering right pleural effusion, unchanged. 3. No interval improvement in bilateral interstitial alveolar opacities, right greater than. Dictated by... Greyson Oconnell M.D. THIS IS AN ELECTRONICALLY VERIFIED REPORT Greyson Oconnell M.D. at 07/05/2016 8:11 AM WILBERT/dyan TD: 07/05/2016 00:04 [facility] A Service [facility] RADIOLOGY TEXT RESULTS PATIENT: SALOME ECHOLS LOCATION: [facility] : 83 UNIT #: [id number] AGE: [address]: DREA SHAIKH MD SEX: F ORDER DR: JOB #: [id number] MEDICAL IMAGING REPORT Page 1 of 1 COPY
--- NOTE | ~2016-06-19 | CR72 ---
[facility] A Service of [facility] & [facility] RADIOLOGY TEXT RESULTS PATIENT: SALOME ECHOLS LOCATION: [address] : [birth year] UNIT #: [id number] AGE: [address]: Jacob Geronimo MD SEX: F ORDER DR: [id number] [facility] [address] [place], [place] [address] [id number] I MR#: [id number] Acc #: [id number] NAME: SALOME ECHOLS : 1985 SEX: F STUDY DATE/TIME: 07/07/2016 6:11 UNIT: [facility] ROOM: [facility] STUDY DESCRIPTION: CR Chest Single View Portable Attending Physician: Jacob Geronimo M.D. Ordering Physician: Dave Leonard M.D. Primary Care Physician: Primary Care Physician No MEDICAL IMAGING REPORT This report is preliminary unless electronic signature is present EXAM Portable chest one view, 07/07/16 COMPARISON: 07/06/16 HISTORY: Respiratory failure, symptoms for 18 days. FINDINGS Right chest tube remains in place and there is persistent right pleural effusion though no pneumothorax. ET tube has been removed. Right IJ central line terminating in the mid right atrium remains. Mild interstitial prominence in both lungs and right mid to lower lung opacity are probably stable since the prior study. No new abnormality is seen. Dictated by... Neri Banda M.D. THIS IS AN ELECTRONICALLY VERIFIED REPORT Neri Banda M.D. at 07/07/2016 3:52 PM WES/tariq TD: 07/07/2016 11:00 JOB #: [id number] MEDICAL IMAGING REPORT Page 1 of 1 COPY
--- NOTE | ~2016-06-19 | EKG ---
PATIENT: RAMSEY HOLGUIN UNIT #: [id number] Ventricular Rate: 126 BPM Atrial Rate: 126 BPM P-R Interval: 132 ms QRS Duration: 84 ms Q-T Interval: 300 ms QTC Calculation(Bezet): 434 ms P [place]: 35 degrees Calculated R [place]: 78 degrees Calculated T [place]: 22 degrees Diagnosis Line: Sinus tachycardia Diagnosis Line: Otherwise normal ECG Diagnosis Line: When compared with ECG of 07-MAY-2014 00:21, Diagnosis Line: Nonspecific T wave abnormality no longer evident Diagnosis Line: in Anterolateral leads Diagnosis Line: Confirmed by STACIE MCCARTY MD ([id number]) on 06/19/2016 Diagnosis Line: 4:42:18 PM INTERPRETING MD: BIBIANA TAMAYO
--- NOTE | ~2016-06-19 | CR72 ---
[facility] A Service of [facility] & [facility] RADIOLOGY TEXT RESULTS PATIENT: SALOME ECHOLS LOCATION: [address] : [birth year] UNIT #: [id number] AGE: [address]: Jacob Geronimo MD SEX: F ORDER DR: [id number] [facility] [address] [place], [place] [address] [id number] I MR#: [id number] Acc #: [id number] NAME: SALOME ECHOLS : 1985 SEX: F STUDY DATE/TIME: 07/03/2016 5:15 UNIT: [facility] ROOM: [facility] STUDY DESCRIPTION: CR Chest Single View Portable Attending Physician: Grazyna hSaikh M.D. Ordering Physician: Eduard Shaikh M.D. Primary Care Physician: Primary Care Physician No MEDICAL IMAGING REPORT This report is preliminary unless electronic signature is present EXAM AP portable chest 07/03/2016 HISTORY 31-year-old female with respiratory failure. On ventilator. Endocarditis. Status post left chest tube removal 06/30/2016. Symptoms began 05/22/2016. Septic emboli. Hepatitis C. Asthma. History of smoking. COMPARISON AP portable chest 07/01/2016. FINDINGS Ill-defined interstitial and alveolar opacities within both lungs, right greater than left, are again noted, with more patchy nodular densities seen peripherally in the left mid lung. There appears be a cavitary lesion left midlung that is partially obscured by leads or artifacts external to the patient. Left chest wall subcutaneous emphysema persists. No definite pneumothorax is seen. Stable mild cardiac enlargement. Right IJ central line extends to the cavoatrial junction. ET tube tip is in satisfactory position approximately 2.4 cm above the [place]. Enteric feeding tube extends below the level of diaphragm, tip not included field view. Small right pleural effusions are stable. IMPRESSION 1. Interstitial and alveolar disease in both lungs, right greater than left, small right pleural effusion, unchanged from prior. 2. Stable left chest wall subcutaneous air. No visible pneumothorax. 3. Stable mild cardiac enlargement. 4. Supporting lines and tubes appear unchanged. Dictated by... Marcela Ruelas M.D. [facility] A Service of [facility] & [facility] RADIOLOGY TEXT RESULTS PATIENT: SALOME ECHOLS LOCATION: [facility]12 : 83 UNIT #: [id number] AGE: [address]: Jacob Geronimo MD SEX: F ORDER DR: THIS IS AN ELECTRONICALLY VERIFIED REPORT Marcela Ruelas M.D. at 07/06/2016 8:36 AM QUIN/taryn TD: 07/03/2016 09:18 JOB #: [id number] MEDICAL IMAGING REPORT Page 1 of 1 COPY
--- NOTE | ~2016-06-19 | CR72 ---
[facility] A Service of [facility] / [facility] RADIOLOGY TEXT RESULTS PATIENT: SALOME ECHOLS [facility] [birth year] UNIT #: [id number] AGE: [address]: Jacob Geronimo MD SEX: F ORDER DR: [id number] [facility] [address] [place], [place] [address] [id number] I MR#: [id number] Acc #: [id number] NAME: SALOME ECHOLS : 1985 SEX: F STUDY DATE/TIME: 07/06/2016 5:56 UNIT: [facility] ROOM: [facility] STUDY DESCRIPTION: CR Chest Single View Portable Attending Physician: Jacob Geronimo M.D. Ordering Physician: Dave Leonard M.D. Primary Care Physician: No Primary Care Physician MEDICAL IMAGING REPORT This report is preliminary unless electronic signature is present EXAM AP portable chest, 07/06/2016. HISTORY Respiratory failure. Patient on ventilator. Chest tube. TECHNIQUE AP portable chest x-ray. FINDINGS The examination shows no change since yesterday. Endotracheal tube, right IJ central line, and Dobbhoff feeding tube remain in good position. Right chest tube in place with no visible pneumothorax. Soft tissue emphysema in the right chest wall, unchanged. Multiple cavitary nodular pulmonary lesions compatible with septic emboli, best seen on chest CT yesterday. Right lung base consolidation and probable residual tiny right pleural effusion. IMPRESSION Stable portable chest radiograph, unchanged since yesterday. Support devices in good position. No pneumothorax. Dictated by... Paolo Cota M.D. THIS IS AN ELECTRONICALLY VERIFIED REPORT Paolo Cota M.D. at 07/06/2016 3:54 PM RGW/tmw TD: 07/06/2016 09:42 [facility] A Service of [facility] / [facility] RADIOLOGY TEXT RESULTS PATIENT: SALOME ECHOLS LOCATION: [facility] : [birth year] UNIT #: [id number] AGE: [address]: Jacob Geronimo MD SEX: F ORDER DR: JOB #: [id number] MEDICAL IMAGING REPORT Page 1 of 1 COPY
--- NOTE | ~2016-06-19 | CT57 ---
[facility] A Service of [facility] & [facility] RADIOLOGY TEXT RESULTS PATIENT: SALOME ECHOLS LOCATION: [address] : [birth year] UNIT #: [id number] AGE: [address]: DREA SHAIKH MD SEX: F ORDER DR: [id number] [facility] [address] [place], [place] [address] [id number] I MR#: [id number] Acc #: [id number] NAME: SALOME ECHOLS : 1985 SEX: F STUDY DATE/TIME: 07/05/2016 2:14 UNIT: [facility] ROOM: [facility] STUDY DESCRIPTION: CT Chest Wo Cont Attending Physician: Drea Shaikh M.D. Ordering Physician: Dave Leonard M.D. Primary Care Physician: Primary Care Physician No MEDICAL IMAGING REPORT This report is preliminary unless electronic signature is present EXAM CT scan of the chest without contrast INDICATIONS Chest tube removal 06/30, respiratory failure, septic emboli, tricuspid endocarditis. Patient is intubated. There is a comparison CT scan from 06/19/2016. FINDINGS This CT exam was performed with one or more of the following radiation dose reduction techniques: Automatic exposure control, adjustment of mA and/or kV according to patient size, and iterative reconstruction. Axial 5 mm images were obtained through the chest without IV contrast. Patient is intubated and the endotracheal tube tip is above the [place]. There is a large right pleural effusion with partial atelectasis of the right lower lobe. There is a small left pleural effusion. There are cavitary densities in the upper and lower lobe on the left side and there is one in the upper lobe on the right side consistent with given history of septic emboli. These measure up to about 2.5 cm in diameter. There is left lower lobe atelectasis as well. The bones are unremarkable. IMPRESSION 1. Large right pleural effusion with atelectasis in most of the right lower lobe and some of the right upper lobe. There is one cavitary lesion in the right upper lobe as well as another noncavitary peripheral lesion. There are multiple cavitary lesions in the left lung, both upper and lower lobes consistent with septic emboli. There are at least 6-7 of these present. 2. Small left pleural effusion. 3. Similar peripheral abnormalities were present on the old study 06/19/2016, but they have become cavitary since that exam. [facility] A Service of [facility] & [facility] RADIOLOGY TEXT RESULTS PATIENT: SALOME ECHOLS LOCATION: [address] : [birth year] UNIT #: [id number] AGE: [address]: DREA SHAIKH MD SEX: F ORDER DR: Dictated by... Dayron Winters M.D. THIS IS AN ELECTRONICALLY VERIFIED REPORT Dayron Winters M.D. at 07/05/2016 9:54 PM KERRIE/psc TD: 07/05/2016 18:59 JOB #: [id number] MEDICAL IMAGING REPORT Page 1 of 1 COPY
--- NOTE | ~2016-06-19 | CO ---
Unit #: [id number] #: [id number] Patient: RAMSEY HOLGUIN [id number] [address] [place], [place] [address] [id number] I MR#: [id number] NAME: RAMSEY HOLGUIN. ROOM: 96418 Age: 31 Sex: F Admission Date: 06/19/2016 : 1985 Attending Physician: Ilda Mariee M.D. Primary Care Physician: Primary Care Physician No CONSULTATION REPORT REASON FOR CONSULTATION Hemoptysis. CHIEF COMPLAINT Body aches, coughing up blood, short of air. HISTORY OF PRESENT ILLNESS This is a 31-year-old female with past medical history of polysubstance abuse, seizure disorder, anxiety, asthma, gastroesophageal reflux disease, presents to the emergency room for the above and has been found to have possible septic emboli. She is an active heroin drug user complaining of pain all over body. I am seeing her at the bedside. PAST MEDICAL HISTORY As described above. PAST SURGICAL HISTORY 1. Ovarian cyst. 2. Endometriosis. 3. Right hand surgery. 4. Oral surgery. HOME MEDICATIONS None. ALLERGIES Keflex. SOCIAL HISTORY IV drug user. Smokes a pack of cigarettes per day. FAMILY HISTORY Father has heart problems. PHYSICAL EXAMINATION VITAL SIGNS: Temperature 97, pulse 130, respirations 28, blood pressure 105/50. NEUROLOGIC: Awake, alert, oriented. No neurologic deficits. HEENT: PERRLA. EOMI. LUNGS: Bilateral air entry, bilateral mild rhonchi. ABDOMEN: Nontender, soft. Positive bowel sounds. EXTREMITIES: No edema. SKIN: No rash. LYMPHATIC: No lymphadenopathy. Unit #: [id number] #: [id number] Patient: RAMSEY HOLGUIN DIAGNOSTIC STUDIES LABORATORY: Reviewed. IMAGING: Reviewed. ASSESSMENT AND PLAN 1. Septic emboli. 2. Hemoptysis. 3. IV drug user. 4. Likely infective endocarditis. 5. Pneumonia. 6. Thrombocytopenia. 7. Urinary tract infection. 8. Hypokalemia. 9. History of seizure disorder. 10. Asthma. PLAN 1. Continue patient on broad-spectrum IV antibiotics. 2. Continue oxygen, bronchodilator. 3. GI and DVT prophylaxis. 4. Check HIV. 5. Check a blood gas. 6. Will need cardiology evaluation. 7. Please see orders for detailed plan. Thank you very much for this consultation. Dictated by... Jaspal Monozn/benjamin TD: 06/19/2016 16:20 JOB #: [id number] CONSULTATION REPORT Page 1 of 1 X Dave Leonard MD X CONSULTATION REPORT
--- NOTE | ~2016-06-19 | CR7 ---
[facility] A Service of [facility] RADIOLOGY TEXT RESULTS PATIENT: SALOME ECHOLS LOCATION: [address] : [birth year] UNIT #: [id number] AGE: [address]: DREA RUBIO MD SEX: F ORDER DR: [id number] [facility] [address] [place], [place] [address] [id number] I MR#: [id number] Acc #: [id number] NAME: SALOME ECHOLS : 1985 SEX: F STUDY DATE/TIME: 07/04/2016 17:15 [facility]: [facility] STUDY DESCRIPTION: CR Abdomen Single AP View Attending Physician: Drea Rubio M.D. Ordering Physician: Ed Doctor [id number] [facility] Primary Care Physician: Primary Care Physician No MEDICAL IMAGING REPORT This report is preliminary unless electronic signature is present EXAM Portable abdomen HISTORY Abdomen distension for 1 day. FINDINGS Moderate amount of stool throughout the colon and rectum but no bowel dilatation or displacement. Normal small bowel gas pattern. Feeding tube tip is in the distal stomach near the distal gastric body in the medial left mid abdomen. No abnormal calcifications are identified. IMPRESSION 1. Moderate amount of stool throughout the colon but no colonic or small bowel dilatation. 2. No bowel displacement. Dictated by... Ruddy Osborne M.D. THIS IS AN ELECTRONICALLY VERIFIED REPORT Ruddy Osborne M.D. at 07/05/2016 11:31 PM ADELINA/jerilyn TD: 07/05/2016 14:24 JOB #: [id number] MEDICAL IMAGING REPORT Page 1 of 1 COPY
--- NOTE | ~2016-06-19 | EKG ---
PATIENT: RAMSEY HOLGUIN UNIT #: [id number] Ventricular Rate: 109 BPM Atrial Rate: 109 BPM P-R Interval: 146 ms QRS Duration: 84 ms Q-T Interval: 362 ms QTC Calculation(Bezet): 487 ms P [place]: 37 degrees Calculated R [place]: 42 degrees Calculated T [place]: 26 degrees Diagnosis Line: Sinus tachycardia Diagnosis Line: Nonspecific T wave abnormality Diagnosis Line: Abnormal ECG Diagnosis Line: When compared with ECG of 20-JUN-2016 12:01, Diagnosis Line: (unconfirmed) Diagnosis Line: No significant change was found Diagnosis Line: Confirmed by ANGELLA NOVAK MD ([id number]) on 06/23/2016 Diagnosis Line: 10:59:55 PM INTERPRETING MD: SCARELT TAMAYO
--- NOTE | ~2016-06-19 | OR ---
Unit #: [id number] #: [id number] Patient: RAMSEY HOLGUIN [id number] [address] [address] [id number] I MR#: [id number] NAME: SALOME ECHOLS ROOM: [facility] Date of Procedure: 06/25/2016 Admission Date: 06/19/2016 Surgeon: Arturo Bonds M.D. : 1985 Attending Physician: Jacob Geronimo M.D. Primary Care Physician: Primary Care Physician No OPERATIVE REPORT PREOPERATIVE DIAGNOSES Left pneumothorax; acute respiratory failure; tricuspid endocarditis with septic emboli. POSTOPERATIVE DIAGNOSES Left pneumothorax; acute respiratory failure; tricuspid endocarditis with septic emboli. PROCEDURE PERFORMED Insertion of a #28 trocar, left chest tube. ANESTHESIA Local 1% Xylocaine. ESTIMATED BLOOD LOSS Minimal. COMPLICATIONS None. DESCRIPTION OF PROCEDURE The patient was left in her intensive care unit bed and still could slightly to the right such as to elevate the left chest. The left chest was prepped with DuraPrep and draped in a sterile fashion. After adequate anesthesia had been obtained using local 1% Xylocaine, a small 1.5 cm skin incision was made in the anterior axillary line just slightly below the fifth intercostal space. A Tonsil clamp was then used to spread through the subcutaneous tissue and entered the left pleural space per the fifth intercostal space. Following this, the #28 trocar right chest tube was passed along this subcutaneous tract and into the chest. The tube was then secured in place to the skin using 2-0 silk suture. It was connected to a Pleur-evac. A cut 4x4 was placed around the chest tube and it was secured in place with tape. Estimated blood loss in the procedure was minimal. The patient tolerated the procedure well. Dictated by... Jaspal Leon/al Unit #: [id number] #: [id number] Patient: RAMSEY HOLGUIN TD: 08/13/2016 23:04 JOB #: [id number] OPERATIVE REPORT Page 1 of 1 X Arturo Bonds MD PROCEDURE OPERATIVE NOTE
--- NOTE | ~2016-06-19 | CR72 ---
[facility] A Service of [facility] RADIOLOGY TEXT RESULTS PATIENT: SALOME ECHOLS LOCATION: [place] [address] : [birth year] UNIT #: [id number] AGE: [address]: DREA RUBIO MD SEX: F ORDER DR: [id number] [facility] [address] [place], [place] [address] [id number] I MR#: [id number] Acc #: [id number] NAME: SALOME ECHOLS : 1985 SEX: F STUDY DATE/TIME: 06/28/2016 7:23 UNIT: [facility] ROOM: [facility] STUDY DESCRIPTION: CR Chest Single View Portable Attending Physician: Rodney Baltazar M.D. Ordering Physician: Rodney Baltazar M.D. Primary Care Physician: No Primary Care Physician MEDICAL IMAGING REPORT This report is preliminary unless electronic signature is present EXAM Single view of the chest dated 06/28/2016 at 0723 hours. COMPARISON Single view chest dated 06/28/2016 at 0447 hours. HISTORY Chest tube leakage today. Shortness of air. Coughing up blood. FINDINGS Single view of the chest was obtained. There is interval worsening of the right-sided pleural effusion which is now moderate. No discernible significant left-sided pleural effusion is seen. Left-sided chest tube is present. Endotracheal tube, right IJ approach central line, and NG tube are redemonstrated and stable. Scattered diffuse alveolar and interstitial opacities are redemonstrated, stable. No obvious pneumothorax. Normal size heart. IMPRESSION 1. There is interval worsening of the right-sided pleural effusion and it is now moderate. 2. Remaining cardiopulmonary findings, tubes and lines are stable. Dictated by... Darcy Simon M.D. THIS IS AN ELECTRONICALLY VERIFIED REPORT Darcy Simon M.D. at 06/29/2016 1:52 PM CPR/tmw TD: 06/28/2016 09:19 [facility] A Service of [facility] RADIOLOGY TEXT RESULTS PATIENT: SALOME ECHOLS LOCATION: [address] : [birth year] UNIT #: [id number] AGE: [address]: DREA RUBIO MD SEX: F ORDER DR: JOB #: [id number] MEDICAL IMAGING REPORT Page 1 of 1 COPY
--- NOTE | ~2016-06-19 | CR72 ---
[facility] A Service of [facility] & [facility] RADIOLOGY TEXT RESULTS PATIENT: SALOME ECHOLS LOCATION: [place] [address] : 83 UNIT #: [id number] AGE: [address]: DREA RUBIO MD SEX: F ORDER DR: [id number] [facility] [address] [place], [place] [address] [id number] I MR#: [id number] Acc #: [id number] NAME: QUESTION NAME . : 1985 SEX: F STUDY DATE/TIME: 06/30/2016 9:56 UNIT: [facility] ROOM: [facility] STUDY DESCRIPTION: CR Chest Single View Portable Attending Physician: Drea Rubio M.D. Ordering Physician: Ed Doctor [id number] [facility] Primary Care Physician: No Primary Care Physician MEDICAL IMAGING REPORT This report is preliminary unless electronic signature is present EXAM Portable chest HISTORY Respiratory failure and shortness of breath for 11 days. Followup tracheostomy. Follow up endotracheal tube and chest tube. FINDINGS Today's portable view of the chest is compared with one from 4 to 5 hours ago. The central venous catheter has its tip in the right atrium. Left chest tube is in good position. The endotracheal tube and nasogastric tube are in good position. The faint bilateral infiltrates are stable. Dictated by... Jaspal Weir/dyan TD: 06/30/2016 12:51 JOB #: [id number] MEDICAL IMAGING REPORT Page 1 of 1
--- NOTE | ~2016-06-19 | CR72 ---
[facility] A Service of [facility] RADIOLOGY TEXT RESULTS PATIENT: RAMSEY HOLGUIN LOCATION: [place] [address] : 83 UNIT #: [id number] AGE: [address]: Rodney Baltazar MD SEX: F ORDER DR: [id number] [place] [address] [place], [place] [address] [id number] I MR#: [id number] Acc #: [id number] NAME: RAMSEY HOLGUIN : 1985 SEX: F STUDY DATE/TIME: 06/24/2016 12:12 UNIT: [facility] ROOM: [facility] STUDY DESCRIPTION: CR Chest Single View Portable Attending Physician: Rodney Baltazar M.D. Ordering Physician: Dave Leonard M.D. Primary Care Physician: No Primary Care Physician MEDICAL IMAGING REPORT This report is preliminary unless electronic signature is present EXAM Portable chest, 06/24/16 at 12:12 hours HISTORY Status post intubation and line placement today. Respiratory distress. COMPARISON STUDIES 06/23/16 FINDINGS Portable upright film demonstrate a new endotracheal tube with tip 1 cm above the char[place]. There is a new right IJ catheter with tip in the right atrium. If it is desired to have the tip in the SVC, I would suggest withdrawing the catheter approximately 4 - 5 cm. The heart size is stable. There is diffuse bilateral airspace change and moderate right pleural effusion with parenchymal changes increased from 06/23/16. Effusion is likely stable when allowing for differences in positioning. IMPRESSION 1. New endotracheal tube tip terminates 1 cm above the char[place]. 2. New right IJ catheter tip terminates in the right atrium. If it is desired to have the tip in the SVC, I would suggest withdrawing the catheter 4 - 5 cm. 3. There is interval increase in bilateral airspace changes. 4. Moderately large right effusion unchanged. There is no pneumothorax. Dictated by... Kathi Arriaga M.D. [facility] A Service of [facility] RADIOLOGY TEXT RESULTS PATIENT: RAMSEY HOLGUIN LOCATION: [address] : [birth year] UNIT #: [id number] AGE: [address]: Rodney Baltazar MD SEX: F ORDER DR: THIS IS AN ELECTRONICALLY VERIFIED REPORT Kathi Arriaga M.D. at 06/24/2016 2:30 PM Juanita TD: 06/24/2016 13:49 JOB #: [id number] MEDICAL IMAGING REPORT Page 1 of 1 COPY
--- NOTE | ~2016-06-19 | CR72 ---
[facility] A Service of [facility] RADIOLOGY TEXT RESULTS PATIENT: SALOME ECHOLS LOCATION: [address] : [birth year] UNIT #: [id number] AGE: [address]: DREA RUBIO MD SEX: F ORDER DR: [id number] [facility] [address] [place], [place] [address] [id number] I MR#: [id number] Acc #: [id number] NAME: SALOME ECHOLS : 1985 SEX: F STUDY DATE/TIME: 06/30/2016 9:56 UNIT: [facility] ROOM: [facility] STUDY DESCRIPTION: CR Chest Single View Portable Attending Physician: Drea Rubio M.D. Ordering Physician: Ed Doctor [id number] [facility] Primary Care Physician: Primary Care Physician No MEDICAL IMAGING REPORT This report is preliminary unless electronic signature is present EXAM Portable chest HISTORY Respiratory failure and shortness of breath for 11 days. Followup tracheostomy. Follow up endotracheal tube and chest tube. FINDINGS Today's portable view of the chest is compared with one from 4 to 5 hours ago. The central venous catheter has its tip in the right atrium. Left chest tube is in good position. The endotracheal tube and nasogastric tube are in good position. The faint bilateral infiltrates are stable. Dictated by... Dayron Winters M.D. THIS IS AN ELECTRONICALLY VERIFIED REPORT Dayron Winters M.D. at 07/02/2016 8:22 AM KERRIE/dyan TD: 06/30/2016 12:51 JOB #: [id number] MEDICAL IMAGING REPORT Page 1 of 1 COPY
--- NOTE | ~2016-06-19 | OR ---
Unit #: [id number] #: [id number] Patient: SALOME ECHOLS [id number] [place] [address] [facility] [place], [place] [address] [id number] I MR#: [id number] NAME: SALOME ECHOLS ROOM: [facility] Date of Procedure: 07/01/2016 Admission Date: 06/19/2016 Surgeon: Maricruz Shaikh M.D. : 1985 Attending Physician: Grazyna Shaikh M.D. Primary Care Physician: No Primary Care Physician PROCEDURE OPERATIVE NOTE PREOPERATIVE DIAGNOSIS MRSA endocarditis and respiratory failure. PROCEDURE PERFORMED Diagnostic bronchoscopy with bronchial washing. INDICATION FOR PROCEDURE High (1) pressure on the vent, copious amount of secretion. PREMEDICATION The patient is on Fentanyl drip. COMPLICATIONS None. DESCRIPTION OF THE PROCEDURE An informed consent was obtained from the patient's mother after explaining the benefits and risks of this procedure. The bronchoscope was advanced through the ET tube and thick secretions were noted in the ET tube which were suctioned with normal saline lavage. Then, the bronchoscope was advanced into the trachea and 10 mL of 1% lidocaine was instilled. Then, the bronchoscope was advanced into the right main bronchus and the right upper lobe, right middle lobe and right lower lobe were examined which appeared very erythematous and swollen with a copious amount of thin, greenish secretion, which was aspirated. Then, the bronchoscope was retracted and then readvanced into the left main bronchus and the left upper lobe lingula and left lower lobe were examined. Again, the patient also was noted to have a copious amount of greenish secretion which was aspirated also. Lavage and washing were obtained from the right lower lobe which will be sent for microbiology and cytology. The bronchoscope was retracted out then and patient tolerated her procedure well with no immediate complication. Dictated by... Maricruz Shaikh M.D. EA/dylan TD: 07/02/2016 06:07 JOB #: [id number] Unit #: [id number] #: [id number] Patient: SALOME ECHOLS PROCEDURE OPERATIVE NOTE Page 1 of 1 X MARICRUZ HAWLEY MD PROCEDURE OPERATIVE NOTE
--- NOTE | ~2016-06-19 | CR72 ---
[facility] A Service of [facility] RADIOLOGY TEXT RESULTS PATIENT: SALOME ECHOLS LOCATION: [address] : [birth year] UNIT #: [id number] AGE: [address]: DREA SHAIKH MD SEX: F ORDER DR: [id number] [facility] [address] [place], [place] [address] [id number] I MR#: [id number] Acc #: [id number] NAME: SALOME ECHOLS : 1985 SEX: F STUDY DATE/TIME: 06/30/2016 05:05 UNIT: [facility] ROOM: [facility] STUDY DESCRIPTION: CR Chest Single View Portable Attending Physician: Drea Shaikh M.D. Ordering Physician: Dave Leonard M.D. Primary Care Physician: Primary Care Physician No MEDICAL IMAGING REPORT This report is preliminary unless electronic signature is present EXAM Portable chest 06/30/2016 at 05:05 INDICATION Respiratory failure. Left-side pneumothorax. Chest tube. Septic emboli. FINDINGS AP portable chest compared with 06/29/2016. Tubes and lines are unchanged and well positioned. Heart size stable. Bilateral infiltrates are stable, as is a right effusion. There is a tiny apical pneumothorax on the left. This is improved since yesterday's exam. Chest tube remains in place. Dictated by... Kenny Guevara Jr., M.D. THIS IS AN ELECTRONICALLY VERIFIED REPORT Kenny Guevara Jr., M.D. at 06/30/2016 10:40 PM JARROD/jerilyn TD: 06/30/2016 07:28 JOB #: [id number] MEDICAL IMAGING REPORT Page 1 of 1 COPY
--- NOTE | ~2016-06-19 | FU ---
[facility] Nutrition Therapy DATE: 07/03/16 Patient: SALOME ECHOLS Physician: SESAR Address: [facility] Room/Bed: [address], Zip: [place] [address] Admit Date: 06/19/16 Date of : [birth year] Height: 5 3 Weight: 137 62.5 NUTRITION MONITORING/FOLLOW-UP: Reason: PT SEEN FOR FOLLOW-UP/ENTERAL NUTRITION SUPPORT DX: BODY ACHES, COUGHING UP BLOOD, PNA, ENDOCARDITIS Anthropometrics: 5'3", WT: 137# (62 KG), BMI: 24.3 -ADMIT WEIGHT: 135-140# Labs: BUN: 3.6, CA+: 8.3, ALB: 1.5 (06/30/16), NA+:133 Meds: PROPOFOL, FENTANYL, PEPCID, D5%, MAG SULFATE, KCL, ZOFRAN I&O's: 2820/3685 Skin: NO KNOWN SKIN ISSUES Estimated Nutrition Needs: 7543-1258 KCAL 74-92 G PRO Assessment: CHART REVIEWED AND EVENTS NOTED. PT SEEN FOR ENTERAL NUTRITION SUPPORT FOLLOW-UP. PT CONTINUES TO BE INTUBATED AND SEDATED (PT RECEIVING PROPOFOL AT RATE OF 11 ML/HR PROVIDING ~290 KCAL FROM LIPIDS) RECEIVING NUTRITION SUPPORT OF JEVITY 1.5 @ 50 ML/HR + SUGAR-FREE PROSTAT ONCE DAILY. PER RN AND CHART, PT TOLERATING EN, NOTING NO ISSUES. PER PUMP HISTORY, PT RECEIVING ~92% ESTIMATED NEEDS PAST 24 HOURS. NO FAMILY IN ROOM AT THIS TIME. RD TO CONTINUE TO FOLLOW. -EN PROVIDES 2190 KCAL, 91 G PRO, 912 ML FREE H20 Dx: INADEQUATE PROTEIN-ENERGY INTAKE R/T CURRENT CLINICAL CONDITION AEB PT RECEIVING ALTERNATIVE NUTRITION SUPPORT, PT INTUBATED AND SEDATED.-ACTIVE Intervention: 1. ENTERAL NUTRITION Monitoring, Evaluation and Goals: GOALS MET 1. ENTERAL NUTRITION; PROVIDE ~80-100% ESTIMATED NUTRIENT NEEDS 2. ORAL INTAKE; ADVANCE DIET TOLERATED PER PERINATAL COORDINATOR W/NO C/O N/V/D (PO>50%) 3. LABS; WNL 4. GI; PROMOTE REGULAR GI FUNCTION MONITOR: -TF RATE/RESIDUALS -WEIGHTS -SEDATION RATE [facility] Nutrition Therapy DATE: 07/03/16 Patient: SALOME ECHOLS Physician: SESAR Address: [address] [facility] Room/Bed: [address], Zip: [place] [address] Admit Date: 06/19/16 Date of : [birth year] Height: 5 3 Weight: 137 62.5 -EXTUBATION? Recommendations: 1. CONTINUE CURRENT ENTERAL NUTRITION SUPPORT OF JEVITY 1.5 @ 50 ML/HR + SUGAR-FREE PROSTAT ONCE DAILY + SEDATION -ADEQUATE FOR PT'S CURRENT ESTIMATED NEEDS CONTINUE FREE H20 FLUSHES PER MD 2. ONCE PT EXTUBATED, ADVANCE DIET PER PERINATAL COORDINATOR + REGULAR RD WILL F/U PER PROTOCOL PT IS MOD/SEVERELY COMPROMISED Respectfully, MIGNON SILVA MS, RD, LD [facility] cc: client file
--- NOTE | ~2016-06-19 | TOC ---
Unit #: [id number] #: [id number] Patient: SALOME ECHOLS [id number] [facility] [address] [place], [place] [address] [id number] I MR#: [id number] NAME: SALOME ECHOLS ROOM: [facility] Age: 31 Sex: F Admission Date: 06/19/2016 : 1985 Attending Physician: Jacob Geronimo M.D. TRANSFER OF CARE SUMMARY From June 29, 2016, to July 05, 2016 PRINCIPAL DIAGNOSES AT TIME OF DICTATION 1. Tricuspid valve endocarditis. 2. Acute hypoxic respiratory failure. 3. Methicillin-resistant Staphylococcus aureus sepsis. 4. Septic pulmonary emboli. 5. Large right pleural effusion, rule out empyema. 6. Pneumothorax, status post chest tube removal. 7. Intravenous drug abuse. 8. Severe sepsis. 9. Back pain. 10. Thrombocytopenia. 11. Anemia. 12. Severe protein calorie malnutrition. HOSPITAL COURSE Patient is a 31-year-old female who was admitted to the hospital because of body aches and coughing up blood. See History and Physical and Transfer of Care Summary dictated in the past. The patient is status post intubation and sedation. The patient continued to spike fevers during the week with the highest up to 101 to 102. Patient also had repeat blood cultures, and the blood cultures have remained negative since June 25. The patient had workup with CT of the cervical spine that showed no fluid accumulation, diskitis, or osteomyelitis. The patient failed weaning protocol. The patient had a bronchoscopy on July 01 for the acute respiratory failure. The bronchoscopy cultures came back positive for Enterobacter. The patient has been continued on Cubicin for the MRSA septicemia with endocarditis and Zyvox for the pulmonary septic emboli. The patient was started on Zosyn for the Enterobacter vent associated pneumonia. Patient had a CT of the chest on Wednesday morning for the right pleural effusion that showed a large right pleural effusion with atelectasis in most of the right lower lobe and some of the right upper lobe. There is one cavitary lesion in the right upper lobe, as well as (1) noncavitary peripheral lesion. There are multiple lesions in the left lung, both upper and lower lobes, consistent with septic emboli. There are at least six to seven of these present. Small left pleural effusion. Similar peripheral abnormalities were present on the old study. The patient has been followed by Pulmonary with Dr. Shaikh from critical care and Dr. Parham from Cardiology and recommended repeat echocardiogram after the patient has been extubated, and patient's care has been transferred to Dr. Geronimo on Wednesday, July 06, onwards for further management of care. Unit #: [id number] #: [id number] Patient: SALOME ECHOLS Dictated by... Jaspal Joy TD: 07/06/2016 14:34 JOB #: [id number] TRANSFER OF CARE SUMMARY Page 1 of 1 X X TRANSFER OF CARE SUMMARY
--- NOTE | ~2016-06-19 | CO ---
Unit #: [id number] #: [id number] Patient: RAMSEY HOLGUIN [id number] [address] [address] [id number] I MR#: [id number] NAME: RAMSEY HOLGUIN ROOM: 55 Age: Sex: F Admission Date: 06/19/2016 : 1985 Attending Physician: Rodney Baltazar M.D. Primary Care Physician: Primary Care Physician No Consultation Date: 06/23/2016 CONSULTATION REPORT REASON FOR CONSULTATION Persistent positive blood cultures in a patient with tricuspid valve endocarditis. HISTORY OF PRESENT ILLNESS This is a 31-year-old female with a history of IV drug abuse including heroin and history of seizures. The patient came to the emergency room due to body aches, coughing up blood and shortness of breath. The patient reports that she has not been feeling well for about five days or so prior to admission when she began with her cough and fever at home. The patient did say that she had some episodes of hemoptysis. She was admitted to the hospital for further evaluation. While here, the patient was noted to have positive blood cultures for MRSA, a positive urine culture for MRSA, a CT scan that was consistent with bilateral septic pulmonary emboli which was thought to be the reason for her hemoptysis, as well as thrombocytopenia. The patient was started on vancomycin but continued to have positive blood cultures and ID was asked to evaluate. Her 2d echocardiogram is consistent with tricuspid valve endocarditis and she also is currently complaining of some pain. She attempted to have an MRI done yesterday but reports that she could not complete the scan due to some shortness of breath. PAST MEDICAL HISTORY Includes: 1. Seizure activity in 2014 which she has been scheduled anti-seizure medications. However, patient does not take these medications and she denies any additional seizures. 2. History of anxiety, asthma, mood disorder, GERD and hepatitis C. She reports that within the last six months she was tested for HIV and this was negative. PAST SURGICAL HISTORY Includes: 1. Ovarian cyst. 2. Endometriosis. 3. Right hand surgery. 4. Oral surgery. ALLERGIES Keflex which causes a rash. MEDICATIONS The patient is currently on vancomycin. For other medications, please Unit #: [id number] #: [id number] Patient: RAMSEY HOLGUIN refer to patient's MAR. SOCIAL HISTORY The patient has polysubstance abuse including heroin done the day prior to admission. She denies any alcohol. She does use tobacco. REVIEW OF SYSTEMS The patient does report some fever and chills as well as some nausea and vomiting. She denies any diarrhea. She reports continued coughing and shortness of breath. She denies any significant chest pain at this time but does report back pain. She denies any UTI signs or symptoms. PHYSICAL EXAMINATION VITAL SIGNS: Temperature 98.0 with a T-max of 100.2 in the last 24 hours. Pulse is 97, blood pressure 114/75 and respiratory rate is 20. GENERAL: This is a no apparent distress female who is resting in the bed. HEENT/NECK: Her pupils are equal. His neck is supple. CARDIOVASCULAR: S1, S2 with murmur appreciated. PULMONARY: Clear to auscultation, diminished in the bases. ABDOMEN: Positive bowel sounds. Soft and nontender. EXTREMITIES: No clubbing, cyanosis or edema. SPINE EXAM: Reports tenderness on palpation but no open wounds are noted. DIAGNOSTIC STUDIES LABORATORY: BUN 13, creatinine 0.5, sodium 137, potassium 3.6, chloride 111, CO2 20, bilirubin 2.0, AST 49, ALT is 36. INR 1.2. White blood cell count 14.5 which is improved from 17,000 yesterday. Hemoglobin 8.4, hematocrit 25.7, platelets 54 which is trending up since admission of 18 being the lowest. Hepatitis panel is pending. HIV is nonreactive. Influenzae screen is negative. Tox screen is positive for opiates. UA shows WBC 5-10, 2+ blood, negative nitrites, trace leukocytes, 5-10 RBCs. MICROBIOLOGY: Blood cultures from 06/22 are currently pending. 06/21 blood cultures - two of two Gram-positive cocci. 06/19 blood culture - one of two MRSA. 06/19 urine culture - MRSA. 06/19 blood culture - four of three MRSA with an RORY to vancomycin of 2. IMAGING: CT scan of the chest negative for PE. Patchy infiltrates bilaterally. One of these is in the right upper lobe with a partial cavitation secondary to septic emboli, trace pleural effusions. MRI of the spine is currently pending. IMPRESSION This is a 31-year-old female with history of IV drug abuse and seizures to the emergency room with shortness of air, hemoptysis, nausea and vomiting Unit #: [id number] #: [id number] Patient: RAMSEY HOLGUIN x5 days. The patient was found to have methicillin resistant Staph aureus sepsis with tricuspid valve vegetation, thrombocytopenia and possible osteomyelitis and discitis of the spine. At this time, blood cultures are still persistently positive and her RORY to vancomycin is 2. Due to patient's condition of continued shortness of air, chills, nausea, back pain and low grade fever, will recommend to change vancomycin to daptomycin and Zyvox. Will continue to follow. Repeat blood cultures results. Will follow imaging of her spine as she may be more able to do this if we control her shortness of breath. However, this will be difficult due to her septic emboli. Will check her CRP and sed rate. Will check a CBC and CK total in the a.m. This case will be discussed with Dr. Ric Mcdonald. The patient may require a RENNY to further evaluate for her regurgitation and her vegetation on her tricuspid valve to help determine if patient needs surgical evaluation/intervention. Thank you for allowing us to participate in the care of this patient and further recommendations to follow pending patient's clinical course. Dictated by... Kenna CamachoPBreezyRBreezyNBreezy for Jaspal Alvarez/pat TD: 06/23/2016 08:27 JOB #: [id number] CONSULTATION REPORT Page 1 of 1 X X CONSULTATION REPORT
--- NOTE | ~2016-06-19 | EKG ---
PATIENT: SALOME ECHOLS UNIT #: [id number] Ventricular Rate: 102 BPM Atrial Rate: 102 BPM P-R Interval: 162 ms QRS Duration: 86 ms Q-T Interval: 336 ms QTC Calculation(Bezet): 437 ms P [place]: 21 degrees Calculated R [place]: 44 degrees Calculated T [place]: 68 degrees Diagnosis Line: Sinus tachycardia Diagnosis Line: Nonspecific T wave abnormality Cannot rule out Diagnosis Line: Anterior injury pattern Diagnosis Line: Abnormal ECG Diagnosis Line: When compared with ECG of 27-JUN-2016 06:24, Diagnosis Line: QT has shortened Diagnosis Line: Confirmed by ANGELLA NOVAK MD ([id number]) on 07/07/2016 Diagnosis Line: 5:39:01 AM INTERPRETING MD: SCARLET TAMAYO
--- NOTE | ~2016-06-19 | FU ---
[facility] Nutrition Therapy DATE: 07/07/16 Patient: SALOME ONESIMO Physician: SESAR Address: [address] [place] [address] Room/Bed: [address], Zip: [place] [address] Admit Date: 06/19/16 Date of : [birth year] Height: 5 3 Weight: 133 60.5 NUTRITION MONITORING/FOLLOW-UP: Reason: PT SEEN FOR FOLLOW-UP DX: BODY ACHES, COUGHING UP BLOOD, PNA, ENDOCARDITIS Anthropometrics: 5'3", WT:: 133# (60 KG), BMI: 23.6 -ADMIT WEIGHT: 130-140# Labs: GLU: 128, BUN: 34, ALB: 1.9 Meds: PEPCID, KCL, ZOFRAN I&O's: Skin: NO KNOWN SKIN ISSUES Estimated Nutrition Needs: [id number] KCAL 74-92 G PRO Assessment: CHART REVIEWED AND EVENTS NOTED. PT SEEN FOR FOLLOW-UP. PT EXTUBATED, PULLED OUT DHT EARLY THIS AM. RADIOLOGICAL HEALTH SPECIALIST PERFORMED EVAL AND DEEMED PT APPROPRIATE FOR REGULAR CONSISTENCY DIET + THIN LIQUIDS. PT CURRENTLY SLEEPY/LETHARGIC AT TIME OF VISIT-NOT APPROPRIATE FOR DIET INTERVIEW. RD TO FOLLOW. SEE RECOMMENDATIONS BELOW. Dx: INADEQUATE PROTEIN-ENERGY INTAKE R/T DX, CURRENT CLINICAL CONDITION AEB EN IN PLACE, PT INTUBATED AND SEDATED.-RESOLVED NEW DX: INADEQUATE NUTRIENT INTAKE R/T CURRENT CONDITION AEB RADIOLOGICAL HEALTH SPECIALIST EVAL, PT SLEEPY/LETHARGIC AT TIME OF VISIT. Intervention: 1. REGULAR DIET 2. RADIOLOGICAL HEALTH SPECIALIST Monitoring, Evaluation and Goals: GOALS NOT MET 1. ORAL INTAKE; CONSUME PO DIET W/NO C/O N/V/D (PO>50%) 2. LABS; WNL 3. GI; PROMOTE REGULAR GI FUNCTION MONITOR: -WEIGHTS -PO INTAKE/APPETITE -LABS [facility] Nutrition Therapy DATE: 07/07/16 Patient: SALOME ECHOLS Physician: SESAR Address: [address] [place] [address] Room/Bed: [address], Zip: [place] [address] Admit Date: 06/19/16 Date of : [birth year] Height: 5 3 Weight: 133 60.5 Recommendations: 1. ENCOURAGE SLOW GRADUAL PO INTAKE 2. RECOMMEND TO ORDER ENSURE SHAKES OR PUDDING OR MAGIC CUP BID FOR ADDITIONAL PROTEIN AND KCAL RD WILL F/U PER PROTOCOL PT IS MODERATELY COMPROMISED Respectfully, MIGNON SILVA MS, RD, LD Food and Nutritional Services [facility] cc: client file
--- NOTE | ~2016-06-19 | CR72 ---
[facility] A Service of [facility] & [facility] RADIOLOGY TEXT RESULTS PATIENT: SALOME ECHOLS LOCATION: [place] [address] : [birth year] UNIT #: [id number] AGE: [address]: DREA SHAIKH MD SEX: F ORDER DR: [id number] [facility] [address] [place], [place] [address] [id number] I MR#: [id number] Acc #: [id number] NAME: SALOME ECHOLS : 1985 SEX: F STUDY DATE/TIME: 06/30/2016 16:30 UNIT: [facility] ROOM: [facility] STUDY DESCRIPTION: CR Chest Single View Portable Attending Physician: Drea Shaikh M.D. Ordering Physician: Isabella Cohn A.P.R.N. Primary Care Physician: Primary Care Physician No MEDICAL IMAGING REPORT This report is preliminary unless electronic signature is present EXAM Portable chest 1 view 06/30/2016 1630 COMPARISON 06/30/2016 at 0956 HISTORY Status post left chest tube removal FINDINGS Persistent subcutaneous emphysema, but no definite pneumothorax following left chest tube removal. ET tube and Dobbhoff feeding tube and right IJ central line remain and there is probably a moderate right pleural effusion, also unchanged since the earlier study. Dictated by... Neri Banda M.D. THIS IS AN ELECTRONICALLY VERIFIED REPORT Neri Banda M.D. at 07/01/2016 5:04 PM TEV/to TD: 07/01/2016 00:15 JOB #: [id number] MEDICAL IMAGING REPORT Page 1 of 1 COPY
--- NOTE | ~2016-06-19 | CR72 ---
[facility] A Service of [facility] RADIOLOGY TEXT RESULTS PATIENT: SALOME ECHOLS LOCATION: [facility] : 83 UNIT #: [id number] AGE: [address]: DREA RUBIO MD SEX: F ORDER DR: [id number] [facility] [address] [place], [place] [address] [id number] I MR#: [id number] Acc #: [id number] NAME: SALOME ECHOLS : 1985 SEX: F STUDY DATE/TIME: 06/29/2016 15:30 UNIT: [facility] ROOM: [facility] STUDY DESCRIPTION: CR Chest Single View Portable Attending Physician: Drea Rubio M.D. Ordering Physician: Physician Non-Staff Primary Care Physician: No Primary Care Physician MEDICAL IMAGING REPORT This report is preliminary unless electronic signature is present EXAM Portable chest 06/29/16 COMPARISON Same date. HISTORY Follow up of pneumothorax. Chest tube. FINDINGS An AP view of the chest is obtained. The left apical pneumothorax persists but is smaller. There continues to be subcutaneous air on the left. There is consolidation of the left base. On the right, there is a large dependent pleural effusion. There is passive congestion. The ET tube, nasoenteric tube and right IJ line are unchanged in position. CONCLUSION Slight decrease in the left pneumothorax. Otherwise no significant change. Dictated by... Colton Salguero M.D. THIS IS AN ELECTRONICALLY VERIFIED REPORT Colton Salguero M.D. at 07/02/2016 2:20 PM JOVANNI/dyan TD: 06/29/2016 19:09 JOB #: [id number] MEDICAL IMAGING REPORT [facility] A Service [facility] RADIOLOGY TEXT RESULTS PATIENT: SALOME ECHOLS LOCATION: [facility] : 83 UNIT #: [id number] AGE: [address]: DREA RUBIO MD SEX: F ORDER DR: Page 1 of 1 COPY
--- NOTE | ~2016-06-19 | EKG ---
PATIENT: RAMSEY HOLGUIN UNIT #: [id number] Ventricular Rate: 108 BPM Atrial Rate: 108 BPM P-R Interval: 138 ms QRS Duration: 84 ms Q-T Interval: 370 ms QTC Calculation(Bezet): 495 ms P [place]: 48 degrees Calculated R [place]: 53 degrees Calculated T [place]: 24 degrees Diagnosis Line: Sinus tachycardia Diagnosis Line: T wave abnormality, consider anterior ischemia Diagnosis Line: Abnormal ECG Diagnosis Line: When compared with ECG of 19-JUN-2016 08:15, Diagnosis Line: T wave inversion now evident in Anterior leads Diagnosis Line: Confirmed by ANGELLA NOVAK MD ([id number]) on 06/23/2016 Diagnosis Line: 10:50:29 PM INTERPRETING MD: SCARLET TAMAYO
--- NOTE | ~2016-06-19 | CR72 ---
[facility] A Service of [facility] & [facility] RADIOLOGY TEXT RESULTS PATIENT: SALOME ECHOLS LOCATION: [address] : [birth year] UNIT #: [id number] AGE: [address]: DREA SHAIKH MD SEX: F ORDER DR: [id number] [facility] [address] [place], [place] [address] [id number] I MR#: [id number] Acc #: [id number] NAME: SALOME ECHOLS : 1985 SEX: F STUDY DATE/TIME: 07/01/2016316 UNIT: [facility] ROOM: [facility] STUDY DESCRIPTION: CR Chest Single View Portable Attending Physician: Drea Shaikh M.D. Ordering Physician: Dave Leonard M.D. Primary Care Physician: No Primary Care Physician MEDICAL IMAGING REPORT This report is preliminary unless electronic signature is present EXAM Portable chest, 07/01 at 0317. INDICATION Respiratory failure. Septic emboli. Endocarditis. FINDINGS AP portable chest is compared with 06/30/2016. ET tube and right IJ line are in good position. Heart size stable. Bilateral infiltrates with a right pleural effusion appear stable. No pneumothorax is seen. Dictated by... Kenny Guevara Jr., M.D. THIS IS AN ELECTRONICALLY VERIFIED REPORT Kenny Guevara Jr., M.D. at 07/01/2016 9:25 PM JARROD/dex TD: 07/01/2016 09:47 JOB #: [id number] MEDICAL IMAGING REPORT Page 1 of 1 COPY
--- NOTE | ~2016-06-19 | CO ---
Unit #: [id number] #: [id number] Patient: RAMSEY HOLGUIN [id number] [address] [place], [place] [address] [id number] I MR#: [id number] NAME: RAMSEY HOLGUIN ROOM: 551 Age: 31 Sex: F Admission Date: 06/19/2016 : 1985 Attending Physician: Rodney Baltazar M.D. Consultation Date: 06/20/2016 CONSULTATION REPORT REASON FOR CONSULTATION Tricuspid valve vegetation. HISTORY OF PRESENT ILLNESS This is a 31-year-old female with a past medical history of polysubstance abuse including IV heroin use, reported last use approximately 2 days ago. Urine tox screen is positive for opiates. She also has past medical history of seizure disorder, anxiety, asthma, GERD. The patient reports to me that she has not been feeling well over the last several days with reports of body aches, cough, fever, also associated nausea and vomiting with multiple bouts of emesis and intermittent hemoptysis. The patient describes as blood-tinged sputum. On arrival to the emergency room, the patient had a lactic acid which was noted to be 2, platelets were 96551. Her chest x-ray shows bilateral infiltrates and CT suggestive of cavitary lesion most likely secondary to septic emboli. 2D echocardiogram was performed, which showed vegetation on the tricuspid valve leaflet [id number] tricuspid regurgitation. She currently has blood cultures x2 sets which are pending. Urinalysis also showed findings concerning for urinary tract infection and she was started on IV antibiotics and given a 2 L bolus of normal saline. She is being admitted for evaluation of the above. PAST MEDICAL HISTORY 1. IV drug abuse. 2. Polysubstance abuse. 3. Anxiety. 4. Asthma. 5. Gastroesophageal reflux disease. 6. Questionable history of hepatitis C, the patient however denies. 7. Seizure disorder. PAST SURGICAL HISTORY Ovarian cyst removal, endometriosis surgery. SOCIAL HISTORY She lives with her boyfriend. History of IV drug abuse including heroin, last use was yesterday. Denies other illicit drug use. Denies alcohol use. She does smoke approximately a pack of cigarettes daily. Urine tox screen this admission was positive for opiates. FAMILY HISTORY Coronary artery disease in her father, however, she cannot specify what Unit #: [id number] #: [id number] Patient: RAMSEY HOLGUIN exactly he had. ALLERGIES Keflex. HOME MEDICATIONS No reported home medications. REVIEW OF SYSTEMS Positive for weakness, fatigue, body aches, intermittent chest pain, drug abuse. Otherwise negative except for what was stated in the HPI. PHYSICAL EXAMINATION GENERAL: This is a pleasant female, 31 years old. She appears ill, she is resting in bed, appears restless. VITAL SIGNS: Temperature 98.7, respiratory rate 16 to 20, pulse is 110s, blood pressure 99/70 to 119/79. HEENT: Head is atraumatic and normocephalic. Pupils are equal and round. Mucous membranes are moist. NECK: Supple. Trachea is midline. Positive for JVD. LUNGS: Clear to auscultation. CARDIOVASCULAR: S1, S2. Tachycardic. Positive murmur at the tricuspid area. ABDOMEN: Soft, nontender, nondistended. EXTREMITIES: Pulses are palpable. No pedal edema. No cyanosis. NEUROLOGIC: Drowsy, but able to answer questions. Moves all extremities equally and follows commands without difficulty. DIAGNOSTIC STUDIES LABORATORY RESULTS: Rapid flu screen was negative. Magnesium 2.4, sodium 137, potassium 3.1, chloride 108, CO2 of 23, BUN 14, creatinine 0.7, glucose 118. Hemoglobin 10.8, hematocrit 33.4, WBCs 13.1, platelet count 18,000 today. Urine tox is positive for opiates. Urinalysis has trace leuk esterase, 5 to 10 red blood cells, 5 to 10, wbc's, 1+ bacteria. Culture is currently pending. IMAGING STUDIES: Chest x-ray shows bilateral infiltrates as well as right cavitary lesion most likely secondary to septic emboli. CARDIOVASCULAR STUDIES: EKG shows sinus tachycardia, 126 beats per minute, QTc interval 434 msec, no acute ischemic changes noted. ASSESSMENT 1. 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 2. IV drug use, recent heroin reported use was yesterday. 3. Sepsis. 4. Thrombocytopenia with platelet count of 18,000 today. 5. Indeterminate troponin. 6. Chest x-ray suggestive of septic emboli. 7. Hypokalemia. 8. Urinary tract infection. Cultures are currently pending. 9. History of seizures, noncompliance with seizure medications. 10. Anxiety. 11. Asthma. 12. Continued tobacco abuse. 13. Gastroesophageal reflux disease. 14. History of hepatitis C per the records, however, the patient denies. Unit #: [id number] #: [id number] Patient: RAMSEY HOLGUIN This is a 31-year-old female with history of IV heroin abuse. We were asked to see the patient and perform 2D echo. On her echo, it shows vegetation on the tricuspid valve leaflets with [id number] tricuspid regurgitation. The patient also has right cavitary lesion with septic emboli. Also thrombocytopenia with a platelet count of 18,000. Her EKG has been reviewed. EKG show sinus tachycardia, rate of 126 beats per minute, however, Dr. Hartman, reviewed her telemetry today and thinks she may be in atrial flutter. However, at this time, we were unable to give any anticoagulation secondary to her low platelet count. No aspirin as well for now. We will monitor rhythm. We will repeat EKG today. Check her electrolytes in the a.m. Her potassium is low today at 3.1. We will put her on potassium protocol and replace potassium now. We will also ask Infectious Disease to see regarding continued antibiotic management. The patient will also have one more set of blood cultures. Currently, she has 2 sets on 2 separate days which are pending. She also has not been eating well and reports the food here does not taste well. We will place her on Ensure t.i.d. for increased protein intake. The patient was advised on the importance of smoking cessation as well as complete cessation of any drug use. Would likely benefit from rehab if the patient is agreeable. Thank you for asking us to see this patient. We appreciate the consult. Dictated by... Rosalia Pritchard A.P.R.N. for Frederick Foster M.D. LMW/modl TD: 06/22/2016 02:49 JOB #: [id number] CONSULTATION REPORT Page 1 of 1 X Rosalia Pritchard APRN X CONSULTATION REPORT
--- NOTE | ~2016-06-19 | CR72 ---
[facility] A Service of [facility] RADIOLOGY TEXT RESULTS PATIENT: RAMSEY HOLGUIN LOCATION: [place] [address] : 83 UNIT #: [id number] AGE: [address]: Rodney Baltazar MD SEX: F ORDER DR: [id number] [facility] [address] [place], [place] [address] [id number] I MR#: [id number] Acc #: [id number] NAME: RAMSEY HOLGUIN : 1985 SEX: F STUDY DATE/TIME: 06/25/2016 7:51 UNIT: [facility] ROOM: [facility] STUDY DESCRIPTION: CR Chest Single View Portable Attending Physician: Rodney Baltazar M.D. Ordering Physician: Arturo Bonds M.D. Primary Care Physician: Primary Care Physician No MEDICAL IMAGING REPORT This report is preliminary unless electronic signature is present EXAM Portable chest, 06/25 INDICATION Chest tube placement for pneumothorax. FINDINGS AP portable chest is compared with earlier this morning. Left chest tube has been placed. There is a persistent tiny apical pneumothorax, but it is improved since the earlier chest x-ray. The remainder of the exam is stable. Dictated by... Kenny Guevara Jr., M.D. THIS IS AN ELECTRONICALLY VERIFIED REPORT Kenny Guevara Jr., M.D. at 06/25/2016 10:02 AM JARROD/prem TD: 06/25/2016 08:20 JOB #: [id number] MEDICAL IMAGING REPORT Page 1 of 1 COPY
--- NOTE | ~2016-06-19 | CR6 ---
[facility] A Service of [facility] & [facility] RADIOLOGY TEXT RESULTS PATIENT: SALOME ECHOLS LOCATION: [address] : [birth year] UNIT #: [id number] AGE: [address]: DREA RUBIO MD SEX: F ORDER DR: [id number] [facility] [address] [place], [place] [address] [id number] I MR#: [id number] Acc #: [id number] NAME: SALOME ECHOLS : 1985 SEX: F STUDY DATE/TIME: 06/30/2016 13:26 UNIT: [facility] ROOM: [facility] STUDY DESCRIPTION: CR Abdomen Portable Sng View Attending Physician: Drea Rubio M.D. Ordering Physician: Eduard Rubio M.D. Primary Care Physician: Primary Care Physician No MEDICAL IMAGING REPORT This report is preliminary unless electronic signature is present EXAM Portable abdomen HISTORY Dobbhoff tube placement FINDINGS Tip of flexible feeding tube is within the gastric fundus. Extensive subcutaneous air is seen over the left hemithorax with a left pleural drain in place. CONCLUSION 1. Tip of the flexible feeding tube is in the stomach. 2. Subcutaneous emphysema. Dictated by... Colton Salguero M.D. THIS IS AN ELECTRONICALLY VERIFIED REPORT Colton Salguero M.D. at 07/02/2016 2:19 PM JOVANNI/juanita TD: 06/30/2016 18:51 JOB #: [id number] MEDICAL IMAGING REPORT Page 1 of 1 COPY
--- NOTE | ~2016-06-19 | CR72 ---
[facility] A Service of [facility] & [facility] RADIOLOGY TEXT RESULTS PATIENT: SALOME ECHOLS LOCATION: [address] : [birth year] UNIT #: [id number] AGE: [address]: DREA SHAIKH MD SEX: F ORDER DR: [id number] [facility] [address] [place], [place] [address] [id number] I MR#: [id number] Acc #: [id number] NAME: SALOME ECHOLS : 1985 SEX: F STUDY DATE/TIME: 06/29/2016 0932 UNIT: [facility] ROOM: [facility] STUDY DESCRIPTION: CR Chest Single View Portable Attending Physician: Drea Shaikh M.D. Ordering Physician: Isabella Cohn A.P.R.N. Primary Care Physician: Ashley Primary Care Physician MEDICAL IMAGING REPORT This report is preliminary unless electronic signature is present EXAM Chest, portable, 06/29/2016, 0932 hours. CLINICAL HISTORY 31-year-old who was coughing up blood on ventilator. Reevaluate endotracheal tube. Shortness of air today. COMPARISON 06/28/2016, 0723 hours FINDINGS Portable upright view of the chest demonstrates endotracheal tube 1.5 cm above the [place]. Right IJ catheter tip is at the junction of SVC and right atrium. There is a left chest tube with tip in the left medial upper hemithorax similar to prior study. There is slight increase in left pneumothorax now measuring up to 1.3 cm, previously 0.7 cm. There is marked increase in subcutaneous air over the left lateral chest. There may be a basilar component to the pneumothorax as well. Stable right pleural effusion and right basilar atelectasis. IMPRESSION 1. Endotracheal tube tip is 1.5 cm above the [place]. 2. Right IJ catheter, nasogastric tube, and left chest tube are stable in position. 3. There is increase in left apical pneumothorax now measuring up to 1.3 cm, previously approximately 0.6 cm. 4. There is significant interval increase in subcutaneous emphysema over the left lateral chest wall. 5. Stable moderate right pleural effusion and right basilar atelectasis. There is no right pneumothorax. STAT * RESULT [facility]. [facility] A Service of [facility] & [facility] RADIOLOGY TEXT RESULTS PATIENT: SALOME ECHOLS LOCATION: [place] [address]-12 : [birth year] UNIT #: [id number] AGE: [address]: DREA SHAIKH MD SEX: F ORDER DR: Dictated by... Kathi Arriaga M.D. THIS IS AN ELECTRONICALLY VERIFIED REPORT Kathi Arriaga M.D. at 06/30/2016 10:40 AM ALDA/dex TD: 06/29/2016 14:32 JOB #: [id number] MEDICAL IMAGING REPORT Page 1 of 1 COPY
--- NOTE | ~2016-06-19 | CO ---
Unit #: [id number] #: [id number] Patient: RAMSEY HOLGUIN [id number] [address] [place], [place] [address] [id number] I MR#: [id number] NAME: RAMSEY HOLGUIN ROOM: 551 Age: 31 Sex: F Admission Date: 06/19/2016 : 1985 Attending Physician: Rodney Baltazar M.D. Consultation Date: 06/20/2016 CONSULTATION REPORT REASON FOR CONSULTATION Thrombocytopenia. HISTORY OF PRESENT ILLNESS Ms. Ramsey Holguin is a 31-year-old with a history of polysubstance abuse, seizures, anxiety, and gastroesophageal reflux disease, who came to the emergency room complaining of coughing up blood, body aches, and shortness of breathing. In the emergency room, she was found to be febrile and we started her on broad-spectrum antibiotics for potential endocarditis. Her CBC done on the day of admission, which was 06/19/2016, showed a white count of 15,200, hemoglobin is 13.1, MCV is 81.3, and platelet count is 24,000. She tells me she has had three episodes of scant hemoptysis, less than a teaspoon full at each instance. She has had no prior history of hemoptysis or prior history of any problems with blood. CT angio of the chest shows multifocal patchy alveolar infiltrates one of which is in the right upper lobe is cavitary suggestive of septic pulmonary emboli. PAST MEDICAL HISTORY In 2014 for seizures, for which she is noncompliant; anxiety asthma; mood disorder; gastroesophageal reflux disease; hepatitis C; and polysubstance abuse. PAST SURGICAL HISTORY Ovarian cyst, endometriosis, right hand surgery, and oral surgery. SOCIAL HISTORY Smokes a pack a day. Lives with her boyfriend. Uses IV drugs including heroin, including immediately prior to her admission. Tox screen is positive for methadone and tricyclics. FAMILY HISTORY Notable for father with heart problems. ALLERGIES She is allergic to Keflex. REVIEW OF SYSTEMS Fourteen point review of systems was taken. CONSTITUTIONAL: As discussed above. EYES: Negative. EARS, NOSE, MOUTH, AND THROAT: Negative. CARDIOVASCULAR: No chest pain or palpitations. Unit #: [id number] #: [id number] Patient: RAMSEY HOLGUIN RESPIRATORY: Cough with hemoptysis. GASTROINTESTINAL: Negative. MUSCULOSKELETAL: Body aches. NEUROLOGIC: Negative. ALLERGIC/LYMPHATIC: Negative. SKIN: Negative. PHYSICAL EXAMINATION GENERAL: She is a middle-aged woman. Performance is 1. VITAL SIGNS: Temperature is 98.6, pulse rate is 106, respiratory rate is 32, and blood pressure is 130/69. She weighs 139 pounds with a BMI of 24. HEENT: Shows pupils are equal and reactive well to light. No pallor or icterus. Mucous membranes are moist. NECK: Without adenopathy, JVD, or thyromegaly. CARDIOVASCULAR: First and second heart sounds are heard. Regular with tachycardia. LUNGS: Chest expansion is symmetric. Bilateral equal air entry. Normal breath sounds. ABDOMEN: Soft and nontender. Bowel sounds are active. EXTREMITIES: Warm and good pulses. No edema, cyanosis, or clubbing. NEUROLOGIC: She is awake, alert, and oriented x3 without any focal findings. SKIN: Negative. LYMPHATICS: No palpable lymph nodes. DIAGNOSTIC STUDIES LABORATORY RESULTS: Influenza screen is negative. PT is 12.7, INR 1.2, and PTT is 33.5. Lactic acid is 2. Basic metabolic panel shows a BUN of 17 and creatinine is 0.7, alkaline phosphatase 239, bilirubin is 2.9, direct is 1.8, total protein is 5.7 with albumin of 2.2. Her CBC shows a white count of 15.2, hemoglobin 13.1, platelets 24,000 at the time of admission, dropping down to 18,000. ASSESSMENT AND PLAN Ms. Ramsey Martell is a 31-year-old with a history of seizures and polysubstance abuse including IV drug use, admitted with body aches, cough, and hemoptysis with CT angio of the chest suggesting septic pulmonary emboli. At this time, she is severely thrombocytopenic without a prior history, although she does have a history of hepatitis C. In view of the hepatitis C, we will plan to transfuse her a single unit of single donor platelets. Her red cell macrocytosis suggest the possibility of iron-deficient anemia. We will plan to check her iron studies. We will continue monitor her platelet count and transfuse as appropriate. Thank you for allowing me to participate in her care and I will follow with you. Dictated by... Jaspal Cabrera/al TD: 06/22/2016 17:08 JOB #: [id number] Unit #: [id number] #: [id number] Patient: RAMSEY HOLGUIN CONSULTATION REPORT Page 1 of 1 X Nicholas Miller MD X CONSULTATION REPORT
--- NOTE | ~2016-06-19 | CR72 ---
[facility] A Service of [facility] RADIOLOGY TEXT RESULTS PATIENT: SALOME ECHOLS LOCATION: [address] : [birth year] UNIT #: [id number] AGE: [address]: DREA SHAIKH MD SEX: F ORDER DR: [id number] [facility] [address] [place], [place] [address] [id number] I MR#: [id number] Acc #: [id number] NAME: SALOME ECHOLS : 1985 SEX: F STUDY DATE/TIME: 06/27/2016 4:14 UNIT: [facility] ROOM: [facility] STUDY DESCRIPTION: CR Chest Single View Portable Attending Physician: Rodney Baltazar M.D. Ordering Physician: Eduard Shaikh M.D. Primary Care Physician: No Primary Care Physician MEDICAL IMAGING REPORT This report is preliminary unless electronic signature is present EXAM Single view of the chest dated 06/27/2016. COMPARISON Single view chest dated 06/26/2016. HISTORY Shortness of air, cough for 12 days. FINDINGS Frontal view of the chest was obtained. 2 images have been given. Stable positioning of tubes and line. Scattered alveolar and interstitial opacities are redemonstrated with mild to moderate layering right-sided pleural effusion. Findings are predominantly stable except for probably some decrease in the right-sided pleural effusion. Left apical pneumothorax is difficult to visualize. Stable normal size heart. IMPRESSION 1. Stable positioning of tubes and lines. 2. The layering right-sided pleural effusion is mild to moderate but it appears to have decreased in the interval slightly. 3. It is difficult to visualize a large left apical pneumothorax. It is probably stable to improved. 4. Scattered diffuse alveolar and interstitial opacities in bilateral lungs are predominantly stable. Dictated by... aDrcy Simon M.D. THIS IS AN ELECTRONICALLY VERIFIED REPORT Darcy Simon M.D. at 06/29/2016 1:46 PM [facility] A Service of [facility] RADIOLOGY TEXT RESULTS PATIENT: SALOME ECHOLS LOCATION: [facility]2-12 : [birth year] UNIT #: [id number] AGE: [address]: DREA SHAIKH MD SEX: F ORDER DR: CINDA/dex TD: 06/27/2016 12:00 JOB #: [id number] MEDICAL IMAGING REPORT Page 1 of 1 COPY
[2016-06-19 07:01] LABS: INFLUENZA A NEG (NEG); INFLUENZA B NEG (NEG)
[~2016-06-19 08:44] MED LIST: NEURONTIN600 MG PO
[2016-06-19 08:54] LABS: BASOPHIL# 0.1 X10e3 (0-0.3); BASOPHIL% 0.4 % (0-2.5); EOSINOPHIL# 0.2 X10e3 (0-0.7); EOSINOPHIL% 1.6 % (0.0-7.0); HEMATOCRIT 40.7 % (35.0-45.0); HEMOGLOBIN 13.1 gm/dL (12.0-16.0); LYMPHOCYTE# 0.7 X10e3 (1.0-3.5); LYMPHOCYTE% 4.7 % (17.0-45.0); MEAN CELL VOLUME 81.3 FL (83-96); MEAN CORPUSCULAR HEMOGLOBIN 26.1 PG (28-34); MEAN CORPUSCULAR HGB CONC 32.1 g/dL (30-36); MEAN PLATELET VOLUME 11.5 FL (6.5-11.5); MONOCYTE# 0.8 X10e3 (0-1.0); MONOCYTE% 5.2 % (3.0-12.0); NEUTROPHIL# 13.4 X10e3 (1.5-7.1); NEUTROPHIL% 88.1 % (40-75); RED BLOOD COUNT 5.01 X10e (3.90-5.30); RED CELL DISTRIBUTION WIDTH 14.6 % (11.0-15.5); WHITE BLOOD COUNT 15.2 X10e3 (4.0-10.5)
[2016-06-19 09:00] LABS: INR 1.2; PARTIAL THROMBOPLASTIN TIME 33.5 SECONDS (23.5-31.3); PROTHROMBIN TIME (PATIENT) 12.7 SECONDS (9.6-11.5)
[2016-06-19 09:24] LABS: POC - CKMB <1.0 ng/mL (0.0-7.9); POC - TROPONIN <0.05 ng/mL (<=0.05)
[2016-06-19 09:28] LABS: ALBUMIN SERUM 2.2 g/dL (3.5-5.0); ALKALINE PHOSPHATASE 239 U/L (32-92); ALT (SGPT) 39 U/L (10-40); AST (SGOT) 43 U/L (10-42); BILIRUBIN, DIRECT 1.8 mg/dL (0.0-0.2); BILIRUBIN,INDIRECT 1.1 mg/dL (0.0-0.9); BILIRUBIN,TOTAL 2.9 mg/dL (0.2-2.0); BLOOD UREA NITROGEN 17 mg/dL (9-23); BUN/CREATININE RATIO 24.28; CALCIUM SERUM 7.7 mg/dL (8.4-10.2); CARBON DIOXIDE 24 mmol/L (22-31); CHLORIDE 96 mmol/L (100-111); CPK (CREATINE PHOSPHOKINASE) 17 IU/L (26-140); CREATININE SERUM 0.7 mg/dL (0.6-1.4); GLOM FILT RATE Estimated 113.8 mL/min (>60); GLUCOSE FASTING 128 mg/dL (70-110); POTASSIUM 3.4 mmol/L (3.5-5.1); PROTEIN TOTAL SERUM 5.7 g/dL (6.0-8.3); SODIUM 130 mmol/L (135-145)
[2016-06-19 09:35] LABS: ALCOHOL BLOOD <5 mg/dL (0); DIFF IND YES; PLATELET COUNT 24 X10e3 (140-420)
[2016-06-19 09:57] LABS: PLATELET ESTIMATE DECREASED (NORMAL)
[2016-06-19 09:58] LABS: RBC NORMAL YES
[2016-06-19 10:09] LABS: URINE SOURCE CLEAN CATCH
[2016-06-19 10:15] LABS: URINE APPEARANCE CLOUDY; URINE BLOOD 2+ (NEG); URINE COLOR DK YELLOW; URINE GLUCOSE NEG (NEG); URINE KETONE TRACE (NEG); URINE LEUKOCYTE ESTERASE TRACE (NEG); URINE NITRATE NEG (NEG); URINE PH 5.5 (5-8); URINE PROTEIN 1+ (NEG); URINE SPECIFIC GRAVITY 1.019 (1.003-1.035)
[2016-06-19 10:17] LABS: CULTURE INDICATED? YES; URINE BACTERIA AUWI 1+ (NEGATIVE); URINE SQUAMOUS EPITHELIAL CELL FEW /[HPF]
[2016-06-19 10:29] LABS: AMPHETAMINE NEG (NEG); BARBITURATES NEG (NEG); BENZODIAZEPINES NEG (NEG); COCAINE NEG (NEG); MARIJUANA NEG (NEG); OPIATES POS (NEG); TRICYCLIC ANTIDEPRESSANTS NEG (NEG); U METHADONE NEG (NEG)
[2016-06-19 10:41] LABS: URINE BILIRUBIN POS (NEG)
[2016-06-19 10:44] LABS: URINE AMORPHOUS SEDIMENT AMORP URATES
[2016-06-19 16:19] LABS: MAGNESIUM 2.1 mg/dL (1.6-3.0)
[2016-06-19 16:54] LABS: ARTERIAL BLOOD GAS CARBOXY HB 1.6 %sat (0.0-9.0); ARTERIAL BLOOD GAS HCO3 24.6 mmol/L; ARTERIAL BLOOD GAS MET HB 0.8 %sat (0.0-2.0); ARTERIAL BLOOD GAS PCO2 33.8 mmHg (35.0-45.0); ARTERIAL BLOOD GAS pH 7.471 (7.350-7.450)
[2016-06-19 16:55] LABS: ARTERIAL BLOOD GAS ALLEN TEST NORMAL; ARTERIAL BLOOD GAS ART SITE RIGHT RADIAL; ARTERIAL BLOOD GAS PO2 50.7 mmHg (80.0-100); ARTERIAL DRAW? YES
[2016-06-19 19:05] LABS: ARTERIAL BLD GAS O2 SATURATION 95.5 % (90.0-100.0); ARTERIAL BLOOD GAS CARBOXY HB 1.4 %sat (0.0-9.0); ARTERIAL BLOOD GAS HCO3 25.2 mmol/L; ARTERIAL BLOOD GAS MET HB 0.6 %sat (0.0-2.0); ARTERIAL BLOOD GAS PCO2 35.7 mmHg (35.0-45.0); ARTERIAL BLOOD GAS PO2 86.2 mmHg (80.0-100); ARTERIAL BLOOD GAS pH 7.458 (7.350-7.450)
[2016-06-19 19:06] LABS: ARTERIAL BLOOD GAS ALLEN TEST NORMAL; ARTERIAL BLOOD GAS ART SITE RIGHT RADIAL; ARTERIAL DRAW? YES
[2016-06-19 19:07] LABS: ARTERIAL BLOOD GAS DELIVERY NASAL CANNULA
[2016-06-19 19:30] LABS: CK TOTAL 13 IU/L (26-140)
[2016-06-20 01:27] LABS: HEMATOCRIT 33.4 % (35.0-45.0); MEAN CELL VOLUME 81.3 FL (83-96); MEAN CORPUSCULAR HEMOGLOBIN 26.4 PG (28-34); MEAN CORPUSCULAR HGB CONC 32.5 g/dL (30-36); MEAN PLATELET VOLUME 10.4 FL (6.5-11.5); RED BLOOD COUNT 4.1 X10e (3.90-5.30); RED CELL DISTRIBUTION WIDTH 14.5 % (11.0-15.5); WHITE BLOOD COUNT 13.1 X10e3 (4.0-10.5)
[2016-06-20 01:28] LABS: HEMOGLOBIN 10.8 gm/dL (12.0-16.0)
[2016-06-20 01:41] LABS: INR 1.2; PROTHROMBIN TIME (PATIENT) 12.9 SECONDS (9.6-11.5)
[2016-06-20 01:49] LABS: CK TOTAL 9 IU/L (26-140)
[2016-06-20 02:06] LABS: ALBUMIN SERUM 1.8 g/dL (3.5-5.0); CALCIUM SERUM 6.9 mg/dL (8.4-10.2); CREATININE SERUM 0.7 mg/dL (0.6-1.4); GLOM FILT RATE Estimated 113.8 mL/min (>60); MAGNESIUM 2.4 mg/dL (1.6-3.0); POTASSIUM 3.1 mmol/L (3.5-5.1); PROTEIN TOTAL SERUM 4.7 g/dL (6.0-8.3)
[2016-06-20 18:23] LABS: BASOPHIL# 0.1 X10e3 (0-0.3); BASOPHIL% 0.7 % (0-2.5); EOSINOPHIL# 0.1 X10e3 (0-0.7); EOSINOPHIL% 0.8 % (0.0-7.0); HEMATOCRIT 31.3 % (35.0-45.0); HEMOGLOBIN 10.3 gm/dL (12.0-16.0); MEAN CELL VOLUME 80.8 FL (83-96); MEAN CORPUSCULAR HEMOGLOBIN 26.6 PG (28-34); MEAN PLATELET VOLUME 10.5 FL (6.5-11.5); MONOCYTE# 1.2 X10e3 (0-1.0); MONOCYTE% 8.4 % (3.0-12.0); NEUTROPHIL# 11.6 X10e3 (1.5-7.1); NEUTROPHIL% 83.1 % (40-75); RED BLOOD COUNT 3.88 X10e (3.90-5.30); RED CELL DISTRIBUTION WIDTH 14.4 % (11.0-15.5); WHITE BLOOD COUNT 13.9 X10e3 (4.0-10.5)
[2016-06-20 18:26] LABS: DIFF IND NO; PLATELET COUNT 24 X10e3 (140-420)
[2016-06-21 05:18] LABS: BASOPHIL# 0.2 X10e3 (0-0.3); BASOPHIL% 1.1 % (0-2.5); EOSINOPHIL# 0.1 X10e3 (0-0.7); EOSINOPHIL% 0.3 % (0.0-7.0); HEMATOCRIT 30.9 % (35.0-45.0); HEMOGLOBIN 10.3 gm/dL (12.0-16.0); LYMPHOCYTE# 1.7 X10e3 (1.0-3.5); LYMPHOCYTE% 10.3 % (17.0-45.0); MEAN CELL VOLUME 79.2 FL (83-96); MEAN CORPUSCULAR HEMOGLOBIN 26.2 PG (28-34); MEAN CORPUSCULAR HGB CONC 33.1 g/dL (30-36); MONOCYTE# 1.4 X10e3 (0-1.0); MONOCYTE% 8.7 % (3.0-12.0); NEUTROPHIL# 13.1 X10e3 (1.5-7.1); NEUTROPHIL% 79.6 % (40-75); RED BLOOD COUNT 3.91 X10e (3.90-5.30); RED CELL DISTRIBUTION WIDTH 14.6 % (11.0-15.5); WHITE BLOOD COUNT 16.4 X10e3 (4.0-10.5)
[2016-06-21 05:19] LABS: PLATELET COUNT 29 X10e3 (140-420)
[2016-06-21 05:20] LABS: DIFF IND NO
[2016-06-21 06:28] LABS: BUN/CREATININE RATIO 31.66; CALCIUM SERUM 7.5 mg/dL (8.4-10.2); CREATININE SERUM 0.6 mg/dL (0.6-1.4); GLOM FILT RATE Estimated 119.8 mL/min (>60); POTASSIUM 4.4 mmol/L (3.5-5.1)
[2016-06-21 09:37] LABS: ARTERIAL BLD GAS O2 SATURATION 96.1 % (90.0-100.0); ARTERIAL BLOOD GAS ART SITE RIGHT RADIAL; ARTERIAL BLOOD GAS CARBOXY HB 1.4 %sat (0.0-9.0); ARTERIAL BLOOD GAS DELIVERY NASAL CANNULA; ARTERIAL BLOOD GAS HCO3 21.2 mmol/L; ARTERIAL BLOOD GAS MET HB 1.5 %sat (0.0-2.0); ARTERIAL BLOOD GAS PCO2 29.4 mmHg (35.0-45.0); ARTERIAL BLOOD GAS pH 7.467 (7.350-7.450); ARTERIAL DRAW? YES
[2016-06-21 12:40] LABS: IRON SERUM 23 ug/dL (28-170); TOTAL IRON BINDING CAPACITY 195 ug/dL (269-535); TRANSFERRIN 139 mg/dL (192-382); TRANSFERRIN SATURATION 12 % (20-50)
[2016-06-22 06:41] LABS: CALCIUM SERUM 7.2 mg/dL (8.4-10.2); CREATININE SERUM 0.5 mg/dL (0.6-1.4); GLOM FILT RATE Estimated 127.2 mL/min (>60); POTASSIUM 3.4 mmol/L (3.5-5.1)
[2016-06-22 14:39] LABS: HEMATOCRIT 27.1 % (35.0-45.0); MEAN CELL VOLUME 79.7 FL (83-96); MEAN CORPUSCULAR HEMOGLOBIN 26.4 PG (28-34); MEAN CORPUSCULAR HGB CONC 33.1 g/dL (30-36); MEAN PLATELET VOLUME 9.5 FL (6.5-11.5); RED BLOOD COUNT 3.4 X10e (3.90-5.30); RED CELL DISTRIBUTION WIDTH 14.8 % (11.0-15.5); WHITE BLOOD COUNT 17.1 X10e3 (4.0-10.5)
[2016-06-22 14:57] LABS: CK TOTAL 17 IU/L (26-140)
[2016-06-23 00:13] LABS: CK TOTAL 17 IU/L (26-140)
[2016-06-23 06:27] LABS: HEMATOCRIT 25.7 % (35.0-45.0); HEMOGLOBIN 8.4 gm/dL (12.0-16.0); MEAN CELL VOLUME 80.8 FL (83-96); MEAN CORPUSCULAR HEMOGLOBIN 26.4 PG (28-34); MEAN CORPUSCULAR HGB CONC 32.6 g/dL (30-36); MEAN PLATELET VOLUME 9.6 FL (6.5-11.5); RED BLOOD COUNT 3.18 X10e (3.90-5.30); RED CELL DISTRIBUTION WIDTH 15.2 % (11.0-15.5); WHITE BLOOD COUNT 14.5 X10e3 (4.0-10.5)
[2016-06-23 12:37] LABS: ARTERIAL BLD GAS O2 SATURATION 94.8 % (90.0-100.0); ARTERIAL BLOOD GAS CARBOXY HB 1.4 %sat (0.0-9.0); ARTERIAL BLOOD GAS HCO3 21.2 mmol/L; ARTERIAL BLOOD GAS MET HB 0.9 %sat (0.0-2.0); ARTERIAL BLOOD GAS PCO2 33.1 mmHg (35.0-45.0); ARTERIAL BLOOD GAS pH 7.416 (7.350-7.450)
[2016-06-23 12:39] LABS: ARTERIAL BLOOD GAS ART SITE LEFT RADIAL; ARTERIAL BLOOD GAS DELIVERY NASAL CANNULA; ARTERIAL DRAW? YES
[2016-06-24 07:50] LABS: HEMATOCRIT 23.4 % (35.0-45.0); HEMOGLOBIN 7.7 gm/dL (12.0-16.0); MEAN CELL VOLUME 80.6 FL (83-96); MEAN CORPUSCULAR HEMOGLOBIN 26.4 PG (28-34); MEAN CORPUSCULAR HGB CONC 32.8 g/dL (30-36); MEAN PLATELET VOLUME 9.5 FL (6.5-11.5); RED BLOOD COUNT 2.9 X10e (3.90-5.30); RED CELL DISTRIBUTION WIDTH 15.3 % (11.0-15.5); WHITE BLOOD COUNT 17.1 X10e3 (4.0-10.5)
[2016-06-24 08:19] LABS: CALCIUM SERUM 7.5 mg/dL (8.4-10.2); CREATININE SERUM 0.5 mg/dL (0.6-1.4); GLOM FILT RATE Estimated 127.2 mL/min (>60); MAGNESIUM 1.8 mg/dL (1.6-3.0); POTASSIUM 3.5 mmol/L (3.5-5.1)
[2016-06-24 10:45] LABS: ARTERIAL BLOOD GAS HCO3 24.1 mmol/L; ARTERIAL BLOOD GAS MET HB 0.8 %sat (0.0-2.0); ARTERIAL BLOOD GAS PCO2 33.5 mmHg (35.0-45.0); ARTERIAL BLOOD GAS pH 7.465 (7.350-7.450)
[2016-06-24 10:46] LABS: ARTERIAL BLOOD GAS ART SITE RIGHT RADIAL; ARTERIAL BLOOD GAS DELIVERY VENTURI; ARTERIAL BLOOD GAS PO2 59.5 mmHg (80.0-100); ARTERIAL DRAW? YES
[2016-06-24 14:18] LABS: ARTERIAL BLD GAS O2 SATURATION 98.4 % (90.0-100.0); ARTERIAL BLOOD GAS ART SITE RIGHT RADIAL; ARTERIAL BLOOD GAS CARBOXY HB 0.3 %sat (0.0-9.0); ARTERIAL BLOOD GAS DELIVERY VENT; ARTERIAL BLOOD GAS HCO3 23.8 mmol/L; ARTERIAL BLOOD GAS MET HB 1.2 %sat (0.0-2.0); ARTERIAL BLOOD GAS PCO2 34.2 mmHg (35.0-45.0); ARTERIAL BLOOD GAS VENT MODE AC; ARTERIAL BLOOD GAS pH 7.451 (7.350-7.450); ARTERIAL DRAW? YES
[2016-06-25 04:40] LABS: HA AB IGM (HEPPAN) Nonreactive (()); HB CORE AB IGM (HEPPAN) Nonreactive (Nonreactive); HB S AG (HEPPAN) Nonreactive (Nonreactive); HEP C AB (HEPPAN) Reactive (Nonreactive); HEP C AB SIGNAL TO CUTOFF 4.81 ratio (<1.00)
[2016-06-25 04:48] LABS: ARTERIAL BLD GAS O2 SATURATION 90.7 % (90.0-100.0); ARTERIAL BLOOD GAS CARBOXY HB 1.4 %sat (0.0-9.0); ARTERIAL BLOOD GAS HCO3 24.7 mmol/L; ARTERIAL BLOOD GAS MET HB 0.8 %sat (0.0-2.0); ARTERIAL BLOOD GAS PCO2 37.4 mmHg (35.0-45.0); ARTERIAL BLOOD GAS pH 7.428 (7.350-7.450)
[2016-06-25 05:00] LABS: ARTERIAL BLOOD GAS ALLEN TEST NORMAL; ARTERIAL BLOOD GAS ART SITE LEFT RADIAL; ARTERIAL BLOOD GAS PO2 60.9 mmHg (80.0-100); ARTERIAL DRAW? YES
[2016-06-25 05:01] LABS: ARTERIAL BLOOD GAS DELIVERY VENT; ARTERIAL BLOOD GAS VENT MODE AC
[2016-06-25 06:24] LABS: ALBUMIN SERUM 1.6 g/dL (3.5-5.0); BILIRUBIN,TOTAL 0.9 mg/dL (0.2-2.0); CALCIUM SERUM 7.3 mg/dL (8.4-10.2); CREATININE SERUM 0.5 mg/dL (0.6-1.4); GLOM FILT RATE Estimated 127.2 mL/min (>60); POTASSIUM 4.2 mmol/L (3.5-5.1); PROTEIN TOTAL SERUM 5.6 g/dL (6.0-8.3)
[2016-06-25 10:28] LABS: ARTERIAL BLD GAS O2 SATURATION 95.4 % (90.0-100.0); ARTERIAL BLOOD GAS HCO3 25.1 mmol/L; ARTERIAL BLOOD GAS MET HB 1.1 %sat (0.0-2.0); ARTERIAL BLOOD GAS pH 7.427 (7.350-7.450)
[2016-06-25 10:29] LABS: ARTERIAL BLOOD GAS ALLEN TEST ABNORMAL; ARTERIAL BLOOD GAS ART SITE RIGHT RADIAL; ARTERIAL BLOOD GAS DELIVERY VENT; ARTERIAL BLOOD GAS VENT MODE AC
[2016-06-25 12:26] LABS: BASOPHIL# 0.1 X10e3 (0-0.3); BASOPHIL% 0.4 % (0-2.5); EOSINOPHIL# 0.5 X10e3 (0-0.7); HEMATOCRIT 26.4 % (35.0-45.0); HEMOGLOBIN 8.6 gm/dL (12.0-16.0); LYMPHOCYTE# 1.7 X10e3 (1.0-3.5); LYMPHOCYTE% 6.8 % (17.0-45.0); MEAN CELL VOLUME 82.3 FL (83-96); MEAN CORPUSCULAR HEMOGLOBIN 26.7 PG (28-34); MEAN CORPUSCULAR HGB CONC 32.5 g/dL (30-36); MEAN PLATELET VOLUME 8.9 FL (6.5-11.5); MONOCYTE# 0.9 X10e3 (0-1.0); MONOCYTE% 3.5 % (3.0-12.0); NEUTROPHIL# 21.7 X10e3 (1.5-7.1); NEUTROPHIL% 87.3 % (40-75); RED BLOOD COUNT 3.21 X10e (3.90-5.30); RED CELL DISTRIBUTION WIDTH 15.5 % (11.0-15.5); WHITE BLOOD COUNT 24.9 X10e3 (4.0-10.5)
[2016-06-25 12:36] LABS: PLATELET COUNT 196 X10e3 (140-420)
[2016-06-25 12:37] LABS: DIFF IND YES
[2016-06-25 13:07] LABS: PLATELET ESTIMATE NORMAL (NORMAL)
[2016-06-25 13:08] LABS: POLYCHROMASIA SL
[2016-06-25 13:09] LABS: ANISOCYTOSIS MOD; POIKILOCYTOSIS MOD
[2016-06-25 15:10] LABS: BODY FLUID APPEARANCE BLOODY; BODY FLUID SOURCE PLEURAL
[2016-06-26 05:06] LABS: BASOPHIL# 0.1 X10e3 (0-0.3); BASOPHIL% 0.5 % (0-2.5); EOSINOPHIL# 0.5 X10e3 (0-0.7); EOSINOPHIL% 2.2 % (0.0-7.0); HEMATOCRIT 25.1 % (35.0-45.0); HEMOGLOBIN 8.1 gm/dL (12.0-16.0); LYMPHOCYTE# 2.1 X10e3 (1.0-3.5); LYMPHOCYTE% 9.1 % (17.0-45.0); MEAN CELL VOLUME 82.2 FL (83-96); MEAN CORPUSCULAR HEMOGLOBIN 26.5 PG (28-34); MEAN CORPUSCULAR HGB CONC 32.3 g/dL (30-36); MEAN PLATELET VOLUME 8.9 FL (6.5-11.5); MONOCYTE# 0.9 X10e3 (0-1.0); MONOCYTE% 3.7 % (3.0-12.0); NEUTROPHIL# 19.3 X10e3 (1.5-7.1); NEUTROPHIL% 84.5 % (40-75); PLATELET COUNT 241 X10e3 (140-420); RED BLOOD COUNT 3.05 X10e (3.90-5.30); RED CELL DISTRIBUTION WIDTH 15.6 % (11.0-15.5); WHITE BLOOD COUNT 22.9 X10e3 (4.0-10.5)
[2016-06-26 05:07] LABS: DIFF IND NO
[2016-06-26 05:12] LABS: ARTERIAL BLD GAS O2 SATURATION 97.6 % (90.0-100.0); ARTERIAL BLOOD GAS CARBOXY HB 0.7 %sat (0.0-9.0); ARTERIAL BLOOD GAS MET HB 0.8 %sat (0.0-2.0); ARTERIAL BLOOD GAS PCO2 45.8 mmHg (35.0-45.0); ARTERIAL BLOOD GAS pH 7.411 (7.350-7.450)
[2016-06-26 05:28] LABS: ARTERIAL BLOOD GAS ALLEN TEST NORMAL; ARTERIAL BLOOD GAS ART SITE LEFT RADIAL; ARTERIAL BLOOD GAS DELIVERY VENT; ARTERIAL BLOOD GAS VENT MODE AC; ARTERIAL DRAW? YES
[2016-06-26 05:34] LABS: ALBUMIN SERUM 1.6 g/dL (3.5-5.0); BILIRUBIN,TOTAL 0.9 mg/dL (0.2-2.0); CALCIUM SERUM 7.4 mg/dL (8.4-10.2); CREATININE SERUM 0.5 mg/dL (0.6-1.4); GLOM FILT RATE Estimated 127.2 mL/min (>60); MAGNESIUM 1.6 mg/dL (1.6-3.0); POTASSIUM 3.6 mmol/L (3.5-5.1); PROTEIN TOTAL SERUM 6.1 g/dL (6.0-8.3)
[2016-06-27 04:49] LABS: ARTERIAL BLD GAS O2 SATURATION 98.3 % (90.0-100.0); ARTERIAL BLOOD GAS CARBOXY HB 0.5 %sat (0.0-9.0); ARTERIAL BLOOD GAS PCO2 46.6 mmHg (35.0-45.0); ARTERIAL BLOOD GAS pH 7.445 (7.350-7.450)
[2016-06-27 05:15] LABS: ARTERIAL BLOOD GAS ALLEN TEST NORMAL; ARTERIAL BLOOD GAS ART SITE LEFT RADIAL; ARTERIAL BLOOD GAS DELIVERY VENT; ARTERIAL BLOOD GAS VENT MODE AC; ARTERIAL DRAW? YES
[2016-06-27 06:37] LABS: MAGNESIUM 1.8 mg/dL (1.6-3.0)
[2016-06-28 05:10] LABS: BASOPHIL% 0.2 % (0-2.5); EOSINOPHIL# 0.3 X10e3 (0-0.7); EOSINOPHIL% 2.3 % (0.0-7.0); HEMATOCRIT 24.2 % (35.0-45.0); HEMOGLOBIN 7.8 gm/dL (12.0-16.0); LYMPHOCYTE# 1.7 X10e3 (1.0-3.5); LYMPHOCYTE% 14.5 % (17.0-45.0); MEAN CELL VOLUME 83.2 FL (83-96); MEAN CORPUSCULAR HEMOGLOBIN 26.7 PG (28-34); MEAN CORPUSCULAR HGB CONC 32.1 g/dL (30-36); MEAN PLATELET VOLUME 8.4 FL (6.5-11.5); MONOCYTE# 0.6 X10e3 (0-1.0); MONOCYTE% 4.6 % (3.0-12.0); NEUTROPHIL# 9.4 X10e3 (1.5-7.1); NEUTROPHIL% 78.4 % (40-75); PLATELET COUNT 340 X10e3 (140-420); RED CELL DISTRIBUTION WIDTH 15.7 % (11.0-15.5)
[2016-06-28 05:15] LABS: DIFF IND NO
[2016-06-28 06:24] LABS: CALCIUM SERUM 7.6 mg/dL (8.4-10.2); CREATININE SERUM 0.5 mg/dL (0.6-1.4); GLOM FILT RATE Estimated 127.2 mL/min (>60); MAGNESIUM 1.8 mg/dL (1.6-3.0); POTASSIUM 3.8 mmol/L (3.5-5.1)
[2016-06-29 01:11] LABS: URINE APPEARANCE CLEAR; URINE BILIRUBIN NEG (NEG); URINE BLOOD NEG (NEG); URINE COLOR YELLOW; URINE GLUCOSE NEG (NEG); URINE KETONE NEG (NEG); URINE LEUKOCYTE ESTERASE NEG (NEG); URINE NITRATE NEG (NEG); URINE PH 8.5 (5-8); URINE PROTEIN NEG (NEG); URINE SPECIFIC GRAVITY 1.007 (1.003-1.035)
[2016-06-29 01:22] LABS: CULTURE INDICATED? NO
[2016-06-29 04:00] LABS: ARTERIAL BLD GAS O2 SATURATION 97.4 % (90.0-100.0); ARTERIAL BLOOD GAS CARBOXY HB 0.9 %sat (0.0-9.0); ARTERIAL BLOOD GAS HCO3 35.2 mmol/L; ARTERIAL BLOOD GAS MET HB 0.6 %sat (0.0-2.0); ARTERIAL BLOOD GAS PCO2 45.9 mmHg (35.0-45.0); ARTERIAL BLOOD GAS pH 7.493 (7.350-7.450)
[2016-06-29 04:08] LABS: ARTERIAL BLOOD GAS ART SITE LEFT BRACHIAL; ARTERIAL BLOOD GAS DELIVERY VENT; ARTERIAL DRAW? YES
[2016-06-29 04:09] LABS: ARTERIAL BLOOD GAS VENT MODE AC
[2016-06-29 05:03] LABS: MAGNESIUM 2.2 mg/dL (1.6-3.0); POTASSIUM 3.8 mmol/L (3.5-5.1)
[2016-06-29 10:43] LABS: ARTERIAL BLD GAS O2 SATURATION 97.2 % (90.0-100.0); ARTERIAL BLOOD GAS CARBOXY HB 0.9 %sat (0.0-9.0); ARTERIAL BLOOD GAS HCO3 34.4 mmol/L; ARTERIAL BLOOD GAS MET HB 0.7 %sat (0.0-2.0); ARTERIAL BLOOD GAS PCO2 44.9 mmHg (35.0-45.0); ARTERIAL BLOOD GAS pH 7.493 (7.350-7.450); ARTERIAL DRAW? YES
[2016-06-29 10:44] LABS: ARTERIAL BLOOD GAS ALLEN TEST NORMAL; ARTERIAL BLOOD GAS ART SITE LEFT RADIAL; ARTERIAL BLOOD GAS DELIVERY VENT; ARTERIAL BLOOD GAS VENT MODE CPAP
[2016-06-30 03:56] LABS: HEMATOCRIT 21.8 % (35.0-45.0); HEMOGLOBIN 7.1 gm/dL (12.0-16.0); MEAN CELL VOLUME 84.3 FL (83-96); MEAN CORPUSCULAR HEMOGLOBIN 27.5 PG (28-34); MEAN CORPUSCULAR HGB CONC 32.6 g/dL (30-36); MEAN PLATELET VOLUME 7.9 FL (6.5-11.5); RED BLOOD COUNT 2.58 X10e (3.90-5.30); RED CELL DISTRIBUTION WIDTH 15.8 % (11.0-15.5); WHITE BLOOD COUNT 10.1 X10e3 (4.0-10.5)
[2016-06-30 04:13] LABS: ALBUMIN SERUM 1.5 g/dL (3.5-5.0); BILIRUBIN,TOTAL 0.5 mg/dL (0.2-2.0); MAGNESIUM 2.1 mg/dL (1.6-3.0); POTASSIUM 3.9 mmol/L (3.5-5.1); PROTEIN TOTAL SERUM 7.5 g/dL (6.0-8.3)
[2016-06-30 05:22] LABS: ARTERIAL BLOOD GAS HCO3 32.6 mmol/L; ARTERIAL BLOOD GAS PCO2 39.1 mmHg (35.0-45.0)
[2016-06-30 05:23] LABS: ARTERIAL BLD GAS O2 SATURATION 98.2 % (90.0-100.0); ARTERIAL BLOOD GAS ALLEN TEST NORMAL; ARTERIAL BLOOD GAS ART SITE LEFT RADIAL; ARTERIAL BLOOD GAS MET HB 0.7 %sat (0.0-2.0); ARTERIAL BLOOD GAS VENT MODE AC; ARTERIAL DRAW? YES
[2016-06-30 14:01] LABS: URINE SOURCE CATH
[2016-06-30 14:23] LABS: CULTURE INDICATED? YES; URINE APPEARANCE CLEAR; URINE BACTERIA AUWI NEG (NEGATIVE); URINE BILIRUBIN NEG (NEG); URINE BLOOD NEG (NEG); URINE COLOR DK YELLOW; URINE GLUCOSE NEG (NEG); URINE KETONE NEG (NEG); URINE LEUKOCYTE ESTERASE TRACE (NEG); URINE NITRATE NEG (NEG); URINE PROTEIN NEG (NEG); URINE SPECIFIC GRAVITY 1.014 (1.003-1.035); URINE SQUAMOUS EPITHELIAL CELL OCC /[HPF]
[2016-07-01 05:53] LABS: BASOPHIL# 0.1 X10e3 (0-0.3); BASOPHIL% 0.6 % (0-2.5); EOSINOPHIL# 0.2 X10e3 (0-0.7); EOSINOPHIL% 1.9 % (0.0-7.0); HEMATOCRIT 22.2 % (35.0-45.0); HEMOGLOBIN 7.3 gm/dL (12.0-16.0); LYMPHOCYTE# 1.8 X10e3 (1.0-3.5); LYMPHOCYTE% 16.5 % (17.0-45.0); MEAN CELL VOLUME 83.7 FL (83-96); MEAN CORPUSCULAR HEMOGLOBIN 27.4 PG (28-34); MEAN CORPUSCULAR HGB CONC 32.7 g/dL (30-36); MEAN PLATELET VOLUME 8.1 FL (6.5-11.5); MONOCYTE# 0.8 X10e3 (0-1.0); MONOCYTE% 7.4 % (3.0-12.0); NEUTROPHIL# 7.8 X10e3 (1.5-7.1); NEUTROPHIL% 73.6 % (40-75); PLATELET COUNT 356 X10e3 (140-420); RED BLOOD COUNT 2.65 X10e (3.90-5.30); WHITE BLOOD COUNT 10.6 X10e3 (4.0-10.5)
[2016-07-01 05:58] LABS: DIFF IND YES
[2016-07-01 06:19] LABS: CALCIUM SERUM 8.6 mg/dL (8.4-10.2); MAGNESIUM 2.3 mg/dL (1.6-3.0); POTASSIUM 4.4 mmol/L (3.5-5.1)
[2016-07-01 06:31] LABS: ANISOCYTOSIS MOD; PLATELET ESTIMATE INCREASED (NORMAL); SCHISTOCYTES PRESENT
[2016-07-01 06:32] LABS: HYPOCHROMIA SL; MICROCYTOSIS MOD
[2016-07-02 04:16] LABS: BASOPHIL# 0.1 X10e3 (0-0.3); BASOPHIL% 0.9 % (0-2.5); EOSINOPHIL# 0.2 X10e3 (0-0.7); EOSINOPHIL% 2.3 % (0.0-7.0); HEMOGLOBIN 7.5 gm/dL (12.0-16.0); LYMPHOCYTE# 2.2 X10e3 (1.0-3.5); LYMPHOCYTE% 22.7 % (17.0-45.0); MEAN CELL VOLUME 83.6 FL (83-96); MEAN CORPUSCULAR HEMOGLOBIN 27.4 PG (28-34); MEAN CORPUSCULAR HGB CONC 32.7 g/dL (30-36); MEAN PLATELET VOLUME 7.8 FL (6.5-11.5); MONOCYTE# 0.9 X10e3 (0-1.0); MONOCYTE% 9.1 % (3.0-12.0); NEUTROPHIL# 6.3 X10e3 (1.5-7.1); PLATELET COUNT 398 X10e3 (140-420); RED BLOOD COUNT 2.75 X10e (3.90-5.30); RED CELL DISTRIBUTION WIDTH 16.5 % (11.0-15.5); WHITE BLOOD COUNT 9.7 X10e3 (4.0-10.5)
[2016-07-02 04:17] LABS: DIFF IND NO
[2016-07-02 04:34] LABS: BUN/CREATININE RATIO 29.09; CALCIUM SERUM 8.4 mg/dL (8.4-10.2); CREATININE SERUM 1.1 mg/dL (0.6-1.4); GLOM FILT RATE Estimated 65.9 mL/min (>60); MAGNESIUM 2.4 mg/dL (1.6-3.0)
[2016-07-02 04:41] LABS: ARTERIAL BLD GAS O2 SATURATION 98.3 % (90.0-100.0); ARTERIAL BLOOD GAS CARBOXY HB 0.8 %sat (0.0-9.0); ARTERIAL BLOOD GAS HCO3 32.7 mmol/L; ARTERIAL BLOOD GAS MET HB 0.6 %sat (0.0-2.0); ARTERIAL BLOOD GAS PCO2 35.6 mmHg (35.0-45.0); ARTERIAL BLOOD GAS pH 7.571 (7.350-7.450)
[2016-07-02 05:08] LABS: ARTERIAL BLOOD GAS ALLEN TEST NORMAL; ARTERIAL BLOOD GAS ART SITE LEFT RADIAL; ARTERIAL BLOOD GAS VENT MODE AC; ARTERIAL DRAW? YES
[2016-07-03 04:25] LABS: ARTERIAL BLD GAS O2 SATURATION 96.6 % (90.0-100.0); ARTERIAL BLOOD GAS CARBOXY HB 1.3 %sat (0.0-9.0); ARTERIAL BLOOD GAS HCO3 33.5 mmol/L; ARTERIAL BLOOD GAS MET HB 0.8 %sat (0.0-2.0); ARTERIAL BLOOD GAS PCO2 45.5 mmHg (35.0-45.0); ARTERIAL BLOOD GAS PO2 93.7 mmHg (80.0-100); ARTERIAL BLOOD GAS pH 7.475 (7.350-7.450)
[2016-07-03 04:34] LABS: ARTERIAL BLOOD GAS ART SITE LEFT BRACHIAL; ARTERIAL BLOOD GAS DELIVERY VENT; ARTERIAL DRAW? YES
[2016-07-03 04:35] LABS: ARTERIAL BLOOD GAS VENT MODE AC
[2016-07-03 05:45] LABS: BASOPHIL# 0.1 X10e3 (0-0.3); BASOPHIL% 0.9 % (0-2.5); EOSINOPHIL# 0.3 X10e3 (0-0.7); HEMATOCRIT 23.8 % (35.0-45.0); HEMOGLOBIN 7.6 gm/dL (12.0-16.0); LYMPHOCYTE# 1.9 X10e3 (1.0-3.5); LYMPHOCYTE% 17.6 % (17.0-45.0); MEAN CELL VOLUME 85.8 FL (83-96); MEAN CORPUSCULAR HEMOGLOBIN 27.3 PG (28-34); MEAN CORPUSCULAR HGB CONC 31.9 g/dL (30-36); MEAN PLATELET VOLUME 7.6 FL (6.5-11.5); MONOCYTE# 0.9 X10e3 (0-1.0); MONOCYTE% 8.5 % (3.0-12.0); NEUTROPHIL# 7.7 X10e3 (1.5-7.1); PLATELET COUNT 414 X10e3 (140-420); RED BLOOD COUNT 2.78 X10e (3.90-5.30); RED CELL DISTRIBUTION WIDTH 17.1 % (11.0-15.5)
[2016-07-03 05:46] LABS: DIFF IND NO
[2016-07-03 06:12] LABS: CALCIUM SERUM 8.3 mg/dL (8.4-10.2); MAGNESIUM 2.5 mg/dL (1.6-3.0); POTASSIUM 4.1 mmol/L (3.5-5.1)
[2016-07-04 03:42] LABS: ARTERIAL BLD GAS O2 SATURATION 97.1 % (90.0-100.0); ARTERIAL BLOOD GAS CARBOXY HB 1.4 %sat (0.0-9.0); ARTERIAL BLOOD GAS HCO3 30.8 mmol/L; ARTERIAL BLOOD GAS MET HB 0.7 %sat (0.0-2.0); ARTERIAL BLOOD GAS PCO2 42.7 mmHg (35.0-45.0); ARTERIAL BLOOD GAS PO2 88.3 mmHg (80.0-100); ARTERIAL BLOOD GAS pH 7.466 (7.350-7.450)
[2016-07-04 03:48] LABS: ARTERIAL BLOOD GAS ALLEN TEST NORMAL; ARTERIAL DRAW? YES
[2016-07-04 03:49] LABS: ARTERIAL BLOOD GAS ART SITE RIGHT RADIAL; ARTERIAL BLOOD GAS DELIVERY VENT; ARTERIAL BLOOD GAS VENT MODE A/C
[2016-07-04 05:41] LABS: BASOPHIL# 0.1 X10e3 (0-0.3); BASOPHIL% 0.8 % (0-2.5); EOSINOPHIL# 0.3 X10e3 (0-0.7); EOSINOPHIL% 2.4 % (0.0-7.0); LYMPHOCYTE% 15.8 % (17.0-45.0); MEAN CELL VOLUME 84.8 FL (83-96); MEAN CORPUSCULAR HEMOGLOBIN 26.7 PG (28-34); MEAN CORPUSCULAR HGB CONC 31.5 g/dL (30-36); MEAN PLATELET VOLUME 7.8 FL (6.5-11.5); MONOCYTE% 8.2 % (3.0-12.0); NEUTROPHIL# 9.1 X10e3 (1.5-7.1); NEUTROPHIL% 72.8 % (40-75); PLATELET COUNT 417 X10e3 (140-420); RED CELL DISTRIBUTION WIDTH 17.1 % (11.0-15.5); WHITE BLOOD COUNT 12.5 X10e3 (4.0-10.5)
[2016-07-04 05:49] LABS: HEMOGLOBIN 6.9 gm/dL (12.0-16.0)
[2016-07-04 05:50] LABS: DIFF IND NO
[2016-07-04 06:34] LABS: BUN/CREATININE RATIO 32.5; CALCIUM SERUM 8.5 mg/dL (8.4-10.2); CREATININE SERUM 1.2 mg/dL (0.6-1.4); GLOM FILT RATE Estimated 59.3 mL/min (>60); POTASSIUM 4.1 mmol/L (3.5-5.1)
[2016-07-05 04:38] LABS: ARTERIAL BLD GAS O2 SATURATION 96.8 % (90.0-100.0); ARTERIAL BLOOD GAS CARBOXY HB 0.9 %sat (0.0-9.0); ARTERIAL BLOOD GAS HCO3 30.6 mmol/L; ARTERIAL BLOOD GAS MET HB 0.6 %sat (0.0-2.0); ARTERIAL BLOOD GAS PCO2 37.9 mmHg (35.0-45.0); ARTERIAL BLOOD GAS PO2 94.4 mmHg (80.0-100); ARTERIAL BLOOD GAS pH 7.515 (7.350-7.450)
[2016-07-05 04:49] LABS: ARTERIAL BLOOD GAS ALLEN TEST NORMAL; ARTERIAL BLOOD GAS ART SITE RIGHT RADIAL; ARTERIAL BLOOD GAS DELIVERY VENT; ARTERIAL BLOOD GAS VENT MODE A/C; ARTERIAL DRAW? YES
[2016-07-05 05:48] LABS: BASOPHIL# 0.1 X10e3 (0-0.3); BASOPHIL% 1.1 % (0-2.5); EOSINOPHIL# 0.4 X10e3 (0-0.7); EOSINOPHIL% 3.4 % (0.0-7.0); HEMATOCRIT 23.8 % (35.0-45.0); HEMOGLOBIN 7.9 gm/dL (12.0-16.0); LYMPHOCYTE# 2.2 X10e3 (1.0-3.5); LYMPHOCYTE% 20.4 % (17.0-45.0); MEAN CORPUSCULAR HEMOGLOBIN 27.7 PG (28-34); MEAN PLATELET VOLUME 7.8 FL (6.5-11.5); MONOCYTE# 0.9 X10e3 (0-1.0); MONOCYTE% 8.4 % (3.0-12.0); NEUTROPHIL# 7.3 X10e3 (1.5-7.1); NEUTROPHIL% 66.7 % (40-75); PLATELET COUNT 401 X10e3 (140-420); RED BLOOD COUNT 2.84 X10e (3.90-5.30); RED CELL DISTRIBUTION WIDTH 16.8 % (11.0-15.5)
[2016-07-05 05:51] LABS: DIFF IND YES
[2016-07-05 06:20] LABS: ALBUMIN SERUM 1.9 g/dL (3.5-5.0); BILIRUBIN,TOTAL 0.3 mg/dL (0.2-2.0); BUN/CREATININE RATIO 35.45; CALCIUM SERUM 8.7 mg/dL (8.4-10.2); CREATININE SERUM 1.1 mg/dL (0.6-1.4); GLOM FILT RATE Estimated 65.9 mL/min (>60); POTASSIUM 3.8 mmol/L (3.5-5.1); PROTEIN TOTAL SERUM 9.1 g/dL (6.0-8.3)
[2016-07-05 06:45] LABS: ANISOCYTOSIS MOD; HYPOCHROMIA SL; PLATELET ESTIMATE INCREASED (NORMAL); POIKILOCYTOSIS SL; SCHISTOCYTES PRESENT
[2016-07-05 17:12] LABS: BODY FLUID SOURCE PLEURAL
[2016-07-05 17:13] LABS: BODY FLUID APPEARANCE HAZY
[2016-07-06 03:54] LABS: BASOPHIL# 0.1 X10e3 (0-0.3); BASOPHIL% 0.9 % (0-2.5); DIFF IND NO; EOSINOPHIL# 0.3 X10e3 (0-0.7); EOSINOPHIL% 3.1 % (0.0-7.0); HEMATOCRIT 23.1 % (35.0-45.0); HEMOGLOBIN 7.5 gm/dL (12.0-16.0); LYMPHOCYTE# 1.8 X10e3 (1.0-3.5); LYMPHOCYTE% 20.8 % (17.0-45.0); MEAN CELL VOLUME 85.3 FL (83-96); MEAN CORPUSCULAR HEMOGLOBIN 27.6 PG (28-34); MEAN CORPUSCULAR HGB CONC 32.4 g/dL (30-36); MEAN PLATELET VOLUME 7.7 FL (6.5-11.5); MONOCYTE# 0.7 X10e3 (0-1.0); MONOCYTE% 8.1 % (3.0-12.0); NEUTROPHIL# 5.9 X10e3 (1.5-7.1); NEUTROPHIL% 67.1 % (40-75); PLATELET COUNT 361 X10e3 (140-420); RED CELL DISTRIBUTION WIDTH 17.1 % (11.0-15.5); WHITE BLOOD COUNT 8.8 X10e3 (4.0-10.5)
[2016-07-06 04:08] LABS: ALBUMIN SERUM 1.9 g/dL (3.5-5.0); BILIRUBIN,TOTAL 0.6 mg/dL (0.2-2.0); CALCIUM SERUM 8.7 mg/dL (8.4-10.2); POTASSIUM 3.9 mmol/L (3.5-5.1); PROTEIN TOTAL SERUM 9.1 g/dL (6.0-8.3)
[2016-07-06 04:12] LABS: ARTERIAL BLD GAS O2 SATURATION 97.5 % (90.0-100.0); ARTERIAL BLOOD GAS CARBOXY HB 0.9 %sat (0.0-9.0); ARTERIAL BLOOD GAS HCO3 33.1 mmol/L; ARTERIAL BLOOD GAS MET HB 0.6 %sat (0.0-2.0); ARTERIAL BLOOD GAS pH 7.428 (7.350-7.450)
[2016-07-06 04:19] LABS: ARTERIAL BLOOD GAS ALLEN TEST NORMAL; ARTERIAL BLOOD GAS ART SITE RIGHT RADIAL; ARTERIAL BLOOD GAS DELIVERY VENT; ARTERIAL BLOOD GAS PCO2 50.1 mmHg (35.0-45.0); ARTERIAL BLOOD GAS VENT MODE A/C; ARTERIAL DRAW? YES
[2016-07-06 09:05] LABS: ARTERIAL BLD GAS O2 SATURATION 89.7 % (90.0-100.0); ARTERIAL BLOOD GAS CARBOXY HB 1.1 %sat (0.0-9.0); ARTERIAL BLOOD GAS MET HB 0.6 %sat (0.0-2.0); ARTERIAL BLOOD GAS PCO2 49.3 mmHg (35.0-45.0); ARTERIAL BLOOD GAS pH 7.447 (7.350-7.450)
[2016-07-06 09:06] LABS: ARTERIAL BLOOD GAS ALLEN TEST NORMAL; ARTERIAL BLOOD GAS ART SITE LEFT RADIAL; ARTERIAL BLOOD GAS PO2 59.6 mmHg (80.0-100); ARTERIAL BLOOD GAS VENT MODE CPAP; ARTERIAL DRAW? YES
[2016-07-06 15:54] LABS: ARTERIAL BLD GAS O2 SATURATION 97.3 % (90.0-100.0); ARTERIAL BLOOD GAS CARBOXY HB 0.8 %sat (0.0-9.0); ARTERIAL BLOOD GAS MET HB 0.6 %sat (0.0-2.0); ARTERIAL BLOOD GAS PCO2 48.4 mmHg (35.0-45.0); ARTERIAL BLOOD GAS pH 7.442 (7.350-7.450)
[2016-07-06 15:55] LABS: ARTERIAL BLOOD GAS ALLEN TEST NORMAL; ARTERIAL BLOOD GAS ART SITE RIGHT RADIAL; ARTERIAL BLOOD GAS VENT MODE CPAP; ARTERIAL DRAW? YES
[2016-07-07 04:33] LABS: ARTERIAL BLOOD GAS CARBOXY HB 1.1 %sat (0.0-9.0); ARTERIAL BLOOD GAS HCO3 32.6 mmol/L; ARTERIAL BLOOD GAS MET HB 0.6 %sat (0.0-2.0); ARTERIAL BLOOD GAS PCO2 43.3 mmHg (35.0-45.0); ARTERIAL BLOOD GAS pH 7.485 (7.350-7.450)
[2016-07-07 04:35] LABS: ARTERIAL BLOOD GAS ALLEN TEST NORMAL; ARTERIAL BLOOD GAS ART SITE RIGHT RADIAL; ARTERIAL BLOOD GAS DELIVERY NASAL CANNULA; ARTERIAL BLOOD GAS PO2 71.2 mmHg (80.0-100); ARTERIAL DRAW? YES
[2016-07-07 05:41] LABS: BASOPHIL# 0.1 X10e3 (0-0.3); BASOPHIL% 0.7 % (0-2.5); EOSINOPHIL# 0.3 X10e3 (0-0.7); EOSINOPHIL% 2.2 % (0.0-7.0); HEMOGLOBIN 8.3 gm/dL (12.0-16.0); LYMPHOCYTE% 16.4 % (17.0-45.0); MEAN CELL VOLUME 83.7 FL (83-96); MEAN CORPUSCULAR HEMOGLOBIN 26.9 PG (28-34); MEAN CORPUSCULAR HGB CONC 32.1 g/dL (30-36); MEAN PLATELET VOLUME 7.8 FL (6.5-11.5); MONOCYTE# 0.7 X10e3 (0-1.0); MONOCYTE% 5.8 % (3.0-12.0); NEUTROPHIL# 9.4 X10e3 (1.5-7.1); NEUTROPHIL% 74.9 % (40-75); PLATELET COUNT 390 X10e3 (140-420); RED CELL DISTRIBUTION WIDTH 16.4 % (11.0-15.5); WHITE BLOOD COUNT 12.5 X10e3 (4.0-10.5)
[2016-07-07 05:54] LABS: DIFF IND NO
[2016-07-07 06:56] LABS: ALBUMIN SERUM 1.9 g/dL (3.5-5.0); BILIRUBIN,TOTAL 0.4 mg/dL (0.2-2.0); BUN/CREATININE RATIO 37.77; CALCIUM SERUM 8.7 mg/dL (8.4-10.2); CREATININE SERUM 0.9 mg/dL (0.6-1.4); GLOM FILT RATE Estimated 84.1 mL/min (>60); POTASSIUM 4.2 mmol/L (3.5-5.1)
== END 2016-07-07 16:50 | DRG 853 ==
LOC: CED 08:44 → CEDOF 11:40 → C5B 06-20 16:40 → CICCU2 06-24 07:50
PROVIDERS: Emergency Medicine; Family Medicine; Internal Medicine; Internal Medicine Cardiovascular Disease; Internal Medicine Hematology & Oncology; Internal Medicine Pulmonary Disease; Nurse Practitioner; Nurse Practitioner Family; Surgery
PROC: B246YZZ Ultrasonography of Right and Left Heart using Other Contrast (ICD-10-PCS; 2016-06-19)
PROC: B32SYZZ Computerized Tomography (CT Scan) of Right Pulmonary Artery using Other Contrast (ICD-10-PCS; 2016-06-19)
PROC: B32TYZZ Computerized Tomography (CT Scan) of Left Pulmonary Artery using Other Contrast (ICD-10-PCS; 2016-06-19)
PROC: 5A1955Z Respiratory Ventilation, Greater than 96 Consecutive Hours (ICD-10-PCS; 2016-06-24)
PROC: 05HM33Z Insertion of Infusion Device into Right Internal Jugular Vein, Percutaneous Approach (ICD-10-PCS; 2016-06-24)
PROC: B543ZZA Ultrasonography of Right Jugular Veins, Guidance (ICD-10-PCS; 2016-06-24)
PROC: 0BH17EZ Insertion of Endotracheal Airway into Trachea, Via Natural or Artificial Opening (ICD-10-PCS; 2016-06-24)
PROC: 0DH67UZ Insertion of Feeding Device into Stomach, Via Natural or Artificial Opening (ICD-10-PCS; 2016-06-30)
PROC: 0B948ZZ Drainage of Right Upper Lobe Bronchus, Via Natural or Artificial Opening Endoscopic (ICD-10-PCS; 2016-07-01)
PROC: 0B998ZZ Drainage of Lingula Bronchus, Via Natural or Artificial Opening Endoscopic (ICD-10-PCS; 2016-07-01)
PROC: 0B978ZZ Drainage of Left Main Bronchus, Via Natural or Artificial Opening Endoscopic (ICD-10-PCS; 2016-07-01)
PROC: 0B9B8ZZ Drainage of Left Lower Lobe Bronchus, Via Natural or Artificial Opening Endoscopic (ICD-10-PCS; 2016-07-01)
PROC: 0B958ZZ Drainage of Right Middle Lobe Bronchus, Via Natural or Artificial Opening Endoscopic (ICD-10-PCS; 2016-07-01)
PROC: 0B988ZZ Drainage of Left Upper Lobe Bronchus, Via Natural or Artificial Opening Endoscopic (ICD-10-PCS; 2016-07-01)
PROC: 0B9B8ZZ Drainage of Left Lower Lobe Bronchus, Via Natural or Artificial Opening Endoscopic (ICD-10-PCS; 2016-07-01)
PROC: 0BB68ZX Excision of Right Lower Lobe Bronchus, Via Natural or Artificial Opening Endoscopic, Diagnostic (ICD-10-PCS; 2016-07-01)
PROC: 0B968ZX Drainage of Right Lower Lobe Bronchus, Via Natural or Artificial Opening Endoscopic, Diagnostic (ICD-10-PCS; 2016-07-01)
PROC: 0B938ZZ Drainage of Right Main Bronchus, Via Natural or Artificial Opening Endoscopic (ICD-10-PCS; 2016-07-01 11:01)
PROC: 30233N1 Transfusion of Nonautologous Red Blood Cells into Peripheral Vein, Percutaneous Approach (ICD-10-PCS; principal; 2016-07-04)
PROC: 0W993ZX Drainage of Right Pleural Cavity, Percutaneous Approach, Diagnostic (ICD-10-PCS; 2016-07-05)
PROC: 02HV33Z Insertion of Infusion Device into Superior Vena Cava, Percutaneous Approach (ICD-10-PCS; 2016-07-07)
PROC: B518YZA Fluoroscopy of Superior Vena Cava using Other Contrast, Guidance (ICD-10-PCS; 2016-07-07)
PROC: B548ZZA Ultrasonography of Superior Vena Cava, Guidance (ICD-10-PCS; 2016-07-07)
DX: A41.02 Sepsis due to Methicillin resistant Staphylococcus aureus (principal); I33.0 Acute and subacute infective endocarditis; J96.01 Acute respiratory failure with hypoxia; G92 Toxic encephalopathy; E43 Unspecified severe protein-calorie malnutrition; I50.21 Acute systolic (congestive) heart failure; D69.6 Thrombocytopenia, unspecified; I42.8 Other cardiomyopathies; J15.6 Pneumonia due to other Gram-negative bacteria; N39.0 Urinary tract infection, site not specified; I76 Septic arterial embolism; J93.9 Pneumothorax, unspecified; R65.20 Severe sepsis without septic shock; B96.89 Other specified bacterial agents as the cause of diseases classified elsewhere; Z88.1 Allergy status to other antibiotic agents; K21.9 Gastro-esophageal reflux disease without esophagitis; J45.909 Unspecified asthma, uncomplicated; F17.210 Nicotine dependence, cigarettes, uncomplicated; E87.6 Hypokalemia; G40.909 Epilepsy, unspecified, not intractable, without status epilepticus; Z91.19 Patient's noncompliance with other medical treatment and regimen; F41.9 Anxiety disorder, unspecified; M54.9 Dorsalgia, unspecified
CPT/HCPCS: 36415; 36600; 71010; 71250; 71275; 72132; 74000; 76937; 77001; 80048; 80053; 80074; 80076; 80170; 80202; 80307; 81003; 82274; 82550; 82553; 82728; 82803; 82945; 82947; 83540; 83550; 83605; 83615; 83735; 83880; 83986; 84132; 84484; 84703; 85025; 85027; 85610; 85652; 85730; 86140; 86850; 86900; 86901; 86923; 87040; 87070; 87077; 87086; 87088; 87102; 87106; 87116; 87186; 87205; 87206; 87522; 87804; 87806; 88108; 88305; 89051; 92610; 93005; 93306; 93312; 93970; 94002; 94003; 94640; 94760; 94761; 96361; 96365; 96367; 99285; A9556; C1751; G0480; J0171; J0878; J1120; J1580; J1650; J1885; J1940; J2020; J2270; J2405; J2543; J2916; J3370; J3475; P9016; Q9967